=== PATIENT | male | born 1935 | race Caucasian/White ===

== ENCOUNTER 2021-09-26 09:56 | Inpatient (IN) | payer OTHER, SELFPAY ==
[2021-09-26] VITALS (9 sets, daily range): BP systolic 144–162; BP diastolic 75–93; PULSE 84–91; RESP 17–20; TEMP 36.5–36.7; O2SAT 83–98; BMI 19.5; BMI 20.1
--- NOTE | ~2021-09-26 | CT_ITS ---
EXAMINATION: CT ABDOMEN AND PELVIS WITH CONTRAST CLINICAL INFORMATION: Abdominal pain. History of diverticulitis. COMPARISON: None TECHNIQUE: Multidetector volumetric images were obtained from the superior aspect of the liver through the pubic symphysis following administration 85 mL of Omnipaque 350 intravenous contrast. Sagittal and coronal reformatted images were obtained on the technologist's workstation. Oral contrast: Yes This CT examination was performed using dose optimization techniques as appropriate, variously including the following: *Automated exposure control *Adjustment of mA and/or kV according to patient size (this includes techniques or standardized protocols for targeted exams where dose is matched to indication/reason for exam; i.e. extremities or head) *Use of iterative reconstruction technique DLP: 347 mGy-cm FINDINGS: LUNG BASES: There are small bilateral pleural effusions, left greater than right. These may be chronic as they demonstrate split pleural sign or pleural thickening and pleural calcification. There is adjacent atelectasis in both lower lobes, again left greater than right. LIVER, GALLBLADDER, AND BILIARY TREE: The liver is slightly enlarged. There are multiple cysts seen in the left lobe of the liver largest measuring 1 x 1.5 cm axial image 9 series 3. There is question of area of increased enhancement versus hypervascular lesion in the peripheral right lobe of the liver measuring 6 mm axial image 21 series 3. The gallbladder is enlarged. There are gallstones. PANCREAS: Unremarkable. SPLEEN: Unremarkable. ADRENAL GLANDS: Unremarkable. KIDNEYS AND URETERS: Both kidneys appear atrophic. There are multiple bilateral renal cysts. There is a 2 cm lesion exophytic to the lateral lower pole the right kidney. Hounsfield units measure 60 not compatible with a simple cyst. It is uncertain whether this represents a complex cyst versus solid lesion. There are bilateral renal calcifications questionable for stones versus vascular calcifications. There is a lucent centered calcification in the right renal hilum questionable for right renal artery aneurysm. This measures 8 x 10 mm. BLADDER: Not empty and not well evaluated. GASTROINTESTINAL TRACT: There is severe diverticulosis of the colon. The colon in the pelvis is difficult to follow. The distal sigmoid colon is abnormal appearing. There is abnormal wall irregularity slightly high attenuation or enhancing thickening of the sigmoid colon questionable for mass versus diverticulitis. There is mild secondary obstruction. There is a long segment of diffuse wall thickening of the more proximal left colon and sigmoid colon. There are enlarged pericolic lymph nodes adjacent to the sigmoid colon. There are postsurgical changes from right colectomy. Small bowel is unremarkable. The stomach is contracted. ABDOMINAL WALL: No significant hernia is appreciated. LYMPH NODES: Enlarged pericolic lymph nodes in the pelvis adjacent to the sigmoid colon. VASCULAR: There is evidence of severe atherosclerotic disease. There is an aortobiiliac stent graft. There is a saccular aneurysm of the anterior left mid abdominal aorta. This measures 3.5 x 5.5 cm in AP and transverse dimension axial image 36 series 3. No comparison exams are available. There is ectasia of the iliac arteries. PELVIC VISCERA: Surgically absent OSSEOUS STRUCTURES: Severe degenerative changes of the spine. CT/CT abdomen pelvis w con IMPRESSION: Abnormal sigmoid colon. The sigmoid colon is tortuous and the course is difficult to follow. There is severe diverticular disease of the colon. There is marked irregular wall thickening of the sigmoid colon questionable for mass versus diverticulitis. There is long segment wall thickening of the more proximal sigmoid and distal left colon and partial secondary obstruction. There are enlarged pericolic lymph nodes. Enlarged liver. Liver cysts. Question area of increased enhancement versus a hypervascular lesion measuring 6 mm in the peripheral right lobe of the liver. Atrophic-appearing kidneys. Bilateral renal cysts. Question complex cyst versus solid renal mass in the lower pole the right kidney. 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 Aortobiiliac stent graft. Saccular left-sided abdominal aortic aneurysm of the mid abdominal aorta measuring 3.5 x 5.5 cm. No comparison exams are available for comparison. Pleural and parenchymal changes at the lung bases, left greater than right. Fleischner guidelines were followed.
--- NOTE | ~2021-09-26 | XR_ITS ---
EXAMINATION: XR CHEST CLINICAL INFORMATION: Significant impairment COMPARISON: None TECHNIQUE: Frontal view of the chest was obtained. FINDINGS: There is diffusely increased lung markings with left lower lobe consolidation/pleural effusion. Calcified plaques along the lung bases. Vascular stent present in the left subclavian area cardiomediastinal silhouette is not enlarged XR/XR chest 1V IMPRESSION: Patchy airspace disease bilaterally and left lower lobe airspace disease/pleural effusion
--- NOTE | 2021-09-26 10:21 | ECG_ITS ---
Test Reason : WEAKNESS Blood Pressure : / mmHG Vent. Rate : 084 BPM Atrial Rate : 084 BPM P-R Int : 176 ms QRS Dur : 094 ms QT Int : 396 ms P-R-T Axes : 054 -18 -35 degrees QTc Int : 467 ms Normal sinus rhythm Nonspecific ST and T wave abnormality Abnormal ECG No previous ECGs available Referred By: Frida Jeffrey Electronically Signed By:BETHANIE ANN MD
--- NOTE | 2021-09-26 10:25 | ED.ABDPAIN ---
HPI - Abdominal Pain General Chief Complaint: Abdominal Pain Stated Complaint: Vomiting Time Seen by Provider: 09/26/21 10:21 Source: patient and old records reviewed Mode of arrival: EMS Limitations: no limitations History of Present Illness HPI narrative: missed HD on Friday and didn't go today, has had nausea, unable to have BM - small one on Friday after laxative does not report passing flatus MD elicited complaint: abdominal pain Pertinent past history: diverticulitis (dx at [facility] on 09/15 with cipro and flagyl states he completed the course) Onset (ago): day(s) (since Friday ) Pain Consistency: constant Location: suprapubic (does not make urine) Severity: moderate Quality: cramping Radiation: none Migration to: no migration Exacerbating factors: eating and movement Relieving factors: nothing Context: recent antibiotic use and history of similar episodes Associated symptoms: nausea, vomiting, chills and anorexia Related Data Allergies Allergy/AdvReac Type Severity Reaction Status Date / Time oxycodone Allergy Hallucinati Verified 09/26/21 10:14 ons aspirin AdvReac Stomach Verified 09/26/21 10:14 Upset sevelamer [From Renvela] AdvReac Stomach Verified 09/26/21 10:14 Upset [id number] Reductase AdvReac Stomach Verified 09/26/21 10:14 Inhibitor Upset Review of Systems Review of Systems Constitutional : No Weight loss, No Fever, No Chills ENT/Mouth : No sore throat, No Rhinorrhea Eyes: No Swelling, No Redness Cardiovascular : No Chest Pain, No SOB, NoEdema Respiratory : No Cough, No Sputum, No Wheezing Gastrointestinal : Positive Nausea, Positive Vomiting, no Diarrhea, positive abdominal Pain, No Hematochezia, No Melena, pos constipation, no flatus Genitourinary : No Dysuria, No Urinary Frequency, No Hematuria, No Urgency Musculoskeletal : No joint pain, No Myalgias, No Joint Swelling Skin : No Skin Lesions, No rash Neuro : pos Weakness, No Numbness, No Dizziness, No Headache Psych : No Anxiety/Panic, No Depression Heme/Lymph: No Bruising, No Lymphadenopathy Endocrine : No Polyuria, No Polydipsia All other systems reviewed and are negative. [facility] Past Medical History Attestation statement: The following information was validated with the patient. Medical History (Updated 09/26/21 @ 15:50 by Frida Jeffrey DO) CRF (chronic renal failure) Diverticulosis GERD (gastroesophageal reflux disease) Gout HTN (hypertension) Surgical History (Updated 09/26/21 @ 10:30 by Frida Jeffrey DO) H/O colectomy H/O prostatectomy S/P AAA repair Social History Social History (Updated 09/26/21 @ 10:31 by Frida Jeffrey DO) Alcohol intake: never Patient Tobacco Use Status: Former Tobacco user Use of substances other than those prescribed or required for medical reasons: No Advance Directives: Yes Advance Directives Information Provided: Yes Advance Directives on File: No Physical Exam ED Vital Signs: Vital Signs - 24 hr 09/26/21 10:04 09/26/21 11:19 09/26/21 13:10 Temperature 98 F 98.1 F 97.9 F Pulse Rate 88 88 85 Respiratory Rate 19 18 17 Blood Pressure 160/86 H 144/75 H 154/84 H Pulse Oximetry 97 91 L 88 L 09/26/21 13:11 09/26/21 14:37 09/26/21 15:03 Temperature 97.7 F Pulse Rate 90 90 Respiratory Rate 18 18 Blood Pressure 158/86 H 162/93 H Pulse Oximetry 98 97 98 BMI result Body Mass Index 19.5 Appearance: Alert. Oriented X3. No acute distress. Eyes: Pupils equal, round and reactive to light. ENT: Pharynx very moderate dry MM Neck: Normal inspection. Neck supple. CVS: Normal heart rate and rhythm. Pulses normal. Respiratory: No respiratory distress. Breath sounds normal. Abdomen: distended but soft, moderate ttp in lower abdomen Skin: Skin warm and dry. Normal skin color. Normal skin turgor. Extremities: No lower extremity edema. LUE AVF + thrill Neuro: Oriented X 3. No motor deficit. No sensory deficit. Course Course Course Narrative: 1227 pm xray abnormal possible disease though likely related to pulm edema will start on empiric zosyn / flagyl suspect diverticulitis as well - infection suspected delay in CT scan read initial review by me ?abscess did send message to Dr. Alston he will review images if abscess admit to hospitalist and IR drainage, will consult will notify his supervisor instrument repair message sent to Dr. Alston given CT scan read 349pm - aware will consult patient Dr. Smith aware of patient admission MDM - Abdominal Pain MDM Narrative Medical decision making narrative: 86 yo male with hx of CKD on HD MWF, AAA repair, anemia, GERD just admitted to [facility] until 09/15 for diverticulitis sent home on cipro / flagyl completed course but noted he ate food on Friday and developed n/v and lower abdominal pain notes constipation and lack of flatus at this time will need labs, EKG, IV morphine for pain, CT scan for diverticulitis/abscess. Dispo per results and findings. Lab Data Result diagrams: 09/26/21 10:48 09/26/21 10:48 Labs: Lab Results 09/26/21 09/26/21 09/26/21 Range/Units 10:48 10:48 10:48 WBC 7.9 (4.8-10.8) X10*3/uL RBC 3.11 L (4.60-5.80) X10*6/uL Hgb 10.1 L (14.0-18.0) g/dl Hct 31.4 L (42.0-52.0) % MCV 101.0 H (80.0-98.0) fL MCH 32.5 (27.0-33.0) pg MCHC 32.2 (31.0-36.0) g/dl RDW 19.7 H (11.0-16.0) % Plt Count 232 (160-400) X10*3/uL MPV 8.7 L (9.4-12.4) fL Immature Gran % (Auto) 0.5 H (0.0-0.4) % Neut % (Auto) 77.4 H (45-73) % Lymph % (Auto) 9.6 L (20-40) % [place] % (Auto) 6.8 (2-11) % Eos % (Auto) 4.7 H (0-4) % Baso % (Auto) 1.0 (0-2) % Lymph # (Auto) 0.8 L (1.2-4.9) X10*3/uL [place] # (Auto) 0.5 (0.1-1.2) X10*3/uL Eos # (Auto) 0.4 (0.0-0.4) X10*3/uL Baso # (Auto) 0.1 (0.0-0.2) X10*3/uL Abs Immat Gran (auto) 0.04 H (0.00-0.03) X10*3/uL Absolute Neuts (auto) 6.1 (2.0-8.3) x10*3/uL Absolute Nucleated RBC 0.000 (0.0-0.012) X10*3/uL Nucleated RBC % (auto) 0.0 (0.0-0.2) /100WBC PT (9.9-13.0) SEC INR (0.9-1.1) Sodium 143 (135-145) mmol/L Potassium 4.8 (3.3-5.1) mmol/L Chloride 103 (96-108) mmol/L Carbon Dioxide 23 (22-29) mmol/L Anion Gap 22 H (12-20) BUN 68 H (9-16) mg/dL Creatinine 9.16 H* (0.5-1.4) mg/dL Estim Creat Clear Calc 5.2 Estimated GFR 6 Random Glucose 85 (60-115) mg/dL Lactic Acid (0.5-2.0) mmol/L Calcium 8.7 (8.4-10.2) mg/dL Magnesium 2.3 (1.6-2.6) mg/dL Total Bilirubin 0.8 (0.0-1.0) mg/dL Direct Bilirubin 0.4 (0.0-0.5) mg/dL AST 13 (5-37) U/L ALT 8 (0-40) U/L Alkaline Phosphatase 91 (39-117) U/L Total Protein 6.5 (6.5-8.0) g/dL Albumin 3.5 (3.5-5.0) g/dL Lipase 41 (8-78) U/L COVID-19 ([facility]) Negative (Negative) COVID-19 Clin Com See Note 09/26/21 09/26/21 Range/Units 10:48 10:48 WBC (4.8-10.8) X10*3/uL RBC (4.60-5.80) X10*6/uL Hgb (14.0-18.0) g/dl Hct (42.0-52.0) % MCV (80.0-98.0) fL MCH (27.0-33.0) pg MCHC (31.0-36.0) g/dl RDW (11.0-16.0) % Plt Count (160-400) X10*3/uL MPV (9.4-12.4) fL Immature Gran % (Auto) (0.0-0.4) % Neut % (Auto) (45-73) % Lymph % (Auto) (20-40) % [place] % (Auto) (2-11) % Eos % (Auto) (0-4) % Baso % (Auto) (0-2) % Lymph # (Auto) (1.2-4.9) X10*3/uL [place] # (Auto) (0.1-1.2) X10*3/uL Eos # (Auto) (0.0-0.4) X10*3/uL Baso # (Auto) (0.0-0.2) X10*3/uL Abs Immat Gran (auto) (0.00-0.03) X10*3/uL Absolute Neuts (auto) (2.0-8.3) x10*3/uL Absolute Nucleated RBC (0.0-0.012) X10*3/uL Nucleated RBC % (auto) (0.0-0.2) /100WBC PT 13.4 H (9.9-13.0) SEC INR 1.2 H (0.9-1.1) Sodium (135-145) mmol/L Potassium (3.3-5.1) mmol/L Chloride (96-108) mmol/L Carbon Dioxide (22-29) mmol/L Anion Gap (12-20) BUN (9-16) mg/dL Creatinine (0.5-1.4) mg/dL Estim Creat Clear Calc Estimated GFR Random Glucose (60-115) mg/dL Lactic Acid 0.8 (0.5-2.0) mmol/L Calcium (8.4-10.2) mg/dL Magnesium (1.6-2.6) mg/dL Total Bilirubin (0.0-1.0) mg/dL Direct Bilirubin (0.0-0.5) mg/dL AST (5-37) U/L ALT (0-40) U/L Alkaline Phosphatase (39-117) U/L Total Protein (6.5-8.0) g/dL Albumin (3.5-5.0) g/dL Lipase (8-78) U/L COVID-19 (S[facility]OR) (Negative) COVID-19 Clin Com ECG Data Attestation: I personally reviewed and interpreted this ECG as follows: ECG interpretation date: 09/26/21 ECG interpretation time: 10:54 Interpretation: Rate: 84 Rhythm: NSR [place]: left Normal P waves. Normal CRUZ. Normal QRS complex. ST T wave : no ATUL, inverted t waves inf leads qTC: normal prior studies: no acute ischemia The study has been interpreted contemporaneously by me. . Discharge Plan Discharge Clinical Impression: Diverticulitis Abdominal pain Qualifiers: Abdominal location: lower abdomen, unspecified Qualified Code(s): R10.30 - Lower abdominal pain, unspecified CKD (chronic kidney disease) Qualifiers: Chronic kidney disease stage: on chronic dialysis Qualified Code(s): N18.6 - End stage renal disease Patient Disposition: Admitted As Inpatient
[2021-09-26] MEDS: Morphine Sulfate 4 MG/ML CARTRIDGE IVPUSH (10:51)
[2021-09-26] MEDS: ondansetron HCL 4 MG/2 ML VIAL IVPUSH (10:51)
[2021-09-26 10:59] LABS: MANUAL DIFF FLAG NO
[2021-09-26 11:03] LABS: Basophils Absolute Auto 0.1 X10*3/uL (0.0-0.2); Eosinophils Absolute Auto 0.4 X10*3/uL (0.0-0.4); Eosinophils Percent Auto 4.7 % (0-4); Hematocrit 31.4 % (42.0-52.0); Hemoglobin 10.1 g/dl (14.0-18.0); Imm Gran Abs Auto 0.04 X10*3/uL (0.00-0.03); Imm Gran Pct Auto 0.5 % (0.0-0.4); Lymphocytes Absolute Auto 0.8 X10*3/uL (1.2-4.9); Lymphocytes Percent Auto 9.6 % (20-40); Mean Corpuscular HGB Conc 32.2 g/dl (31.0-36.0); Mean Corpuscular Hemoglobin 32.5 pg (27.0-33.0); Mean Platelet Volume 8.7 fL (9.4-12.4); Monocytes Absolute Auto 0.5 X10*3/uL (0.1-1.2); Monocytes Percent Auto 6.8 % (2-11); Neutrophils Absolute Auto 6.1 x10*3/uL (2.0-8.3); Neutrophils Percent Auto 77.4 % (45-73); Platelet Count 232 X10*3/uL (160-400); Red Blood Count 3.11 X10*6/uL (4.60-5.80); Red Cell Distribution Width 19.7 % (11.0-16.0); White Blood Count 7.9 X10*3/uL (4.8-10.8)
[2021-09-26 11:14] LABS: COVID-19 Test Negative (Negative); IDNOW Serial# 9DD0AD1C
[2021-09-26 11:15] LABS: Lactic Acid 0.8 mmol/L (0.5-2.0)
--- NOTE | 2021-09-26 11:21 | PC.NURSE ---
patient a&ox3, pt o2 sat was noted to be at 91%, had patient deep breathe which brought it up to 94%, pt states he has abd pain 4/10 which he states has gotten better from previously before being medicated, call dunn within reach, will continue to monitor.
[2021-09-26 11:24] LABS: INTERNATIONAL NORM RATIO 1.2 (0.9-1.1); Prothrombin Time 13.4 SEC (9.9-13.0)
[2021-09-26 11:27] LABS: Alanine Aminotransferase 8 U/L (0-40); Albumin Level 3.5 g/dL (3.5-5.0); Alkaline Phosphatase 91 U/L (39-117); Anion Gap 22 (12-20); Aspartate Amino Transferase 13 U/L (5-37); Bilirubin Direct 0.4 mg/dL (0.0-0.5); Bilirubin Total 0.8 mg/dL (0.0-1.0); Blood Urea Nitrogen 68 mg/dL (9-16); Calcium 8.7 mg/dL (8.4-10.2); Carbon Dioxide 23 mmol/L (22-29); Chloride 103 mmol/L (96-108); Creatinine Clr Calc Pharmacy 5.2; Estimated Glomerular Filt Rate 6; Glucose Random 85 mg/dL (60-115); Lipase 41 U/L (8-78); Magnesium 2.3 mg/dL (1.6-2.6); Potassium 4.8 mmol/L (3.3-5.1); Sodium 143 mmol/L (135-145); Total Protein 6.5 g/dL (6.5-8.0)
[2021-09-26] MEDS: Piperacillin Sodium/Tazobactam 3.375 GM in 0.9 % Sodium Chloride 50 ML IV (13:03)
--- NOTE | 2021-09-26 13:04 | PC.NURSE ---
iv antibiotics running per order
[2021-09-26] MEDS: iohexoL 350 MG/ML 100 ML INFUS..BTL IV (14:17)
[2021-09-26] MEDS: metroNIDAZOLE/NS 500 MG/100 ML PIGGYBACK 100 MG IV (15:04)
--- NOTE | 2021-09-26 15:06 | PC.NURSE ---
patient a&ox3, air sampling and monitoring nsr 90s, vss, pt medicated per order, pt lt av fistula + bruit/thrill, call dunn within reach, will continue to monitor.
--- NOTE | 2021-09-26 16:00 | PC.NURSE ---
provider at bedside to drain cyst.
--- NOTE | 2021-09-26 17:08 | P.HPHOSP_ITS ---
History of Present Illness Date of Service: 09/26/21 Chief Complaint: nausea, abd pain 86yo legally blind M with ESRD on HD MWF, anemia of CKD, HFpEF, GERD, AAA s/p EVAR, HTN, gout, prostate CA s/p radical prostatectomy, hx GI bleed, hx colonic polyp s/p polypectomy who was just admitted to [facility] 09/10- 09/15/21 for acute diverticulitis with question of possible melena. He had missed 1 session of dialysis due to nausea and vomiting. He was discharged on ciprolofloxacin and metronidazole and completed his last doses on 09/16/21. He developed worsening abdominal pain, nausea, and vomiting without hematemesis the next day. He again missed HD 09/24 and today. He has not had a BM on a week. He has been eating very little. No fever. CT scan showed a tortuous sigmoid colon with severe diverticular disease and irregular wall thickening questionable for mass versus diverticulitis, with partial secondary obstruction and enlarged pericolic lymph nodes. He was given Zosyn, Zofran, and morphine. Review of Systems Review of Systems: Yes all other systems are reviewed and are negative [facility] Medical History (Updated 09/26/21 @ 17:18 by Debra Simpson MD) (HFpEF) heart failure with preserved ejection fraction AAA (abdominal aortic aneurysm) Anemia in ESRD (end-stage renal disease) Colonic polyp CRF (chronic renal failure) Depression Diverticulosis GERD (gastroesophageal reflux disease) Gout History of prostate cancer HTN (hypertension) Pertinent family history: daughter with breast CA Surgical History (Updated 09/26/21 @ 17:18 by Debra Simpson MD) H/O colectomy H/O prostatectomy History of colonoscopy with polypectomy S/P AAA repair Social History Alcohol intake: never Patient Tobacco Use Status: Former Tobacco user Use of substances other than those prescribed or required for medical reasons: No Advance Directives: Yes Advance Directives Information Provided: Yes Advance Directives on File: No Narrative: lives with , no EtOH/tob/drugs Meds Allergies Allergy/AdvReac Type Severity Reaction Status Date / Time oxycodone Allergy Hallucinati Verified 09/26/21 10:14 ons aspirin AdvReac Stomach Verified 09/26/21 10:14 Upset sevelamer [From Renvela] AdvReac Stomach Verified 09/26/21 10:14 Upset Clwosfk-ULL-[id number] Reductase AdvReac Stomach Verified 09/26/21 10:14 Inhibitor Upset Active Medications: Current Medications Piperacillin Sod/Tazobactam (Sod 2.25 gm/ Sodium Chloride) 50 mls @ 100 mls/hr IV Q8H [facility] Pharmacy Consult (Consult Rx Perform Med Rec) 1 each MISCELLANE ONCE PRN PRN Reason: Consult order Physical Exam Vital Signs and Narrative: Vital Signs: Last Vital Signs Temp 97.7 F 09/26/21 15:03 Pulse 90 09/26/21 15:03 Resp 18 09/26/21 15:03 BP 162/93 H 09/26/21 15:03 Pulse Ox 98 09/26/21 15:03 BMI result Body Mass Index 19.5 Gen: in no acute distress HEENT: sclera anicteric, moist mucus membranes Neck: supple Lungs: clear to auscultation bilaterally Heart: regular rate and rhythm, no murmurs Abd: soft, minimally tender without rebound, no masses, no HSM Ext: no edema; LUE fistula Skin: warm/well-perfused Neuro: alert and oriented x3, no focal findings Psych: appropriate affect Results Labs CBC and Chem 7: 09/26/21 10:48 09/26/21 10:48 Labs: Laboratory Results - last 24 hr 09/26/21 09/26/21 09/26/21 10:48 10:48 10:48 MCV 101.0 H MCH 32.5 MCHC 32.2 RDW 19.7 H Plt Count 232 MPV 8.7 L Immature Gran % (Auto) 0.5 H Neut % (Auto) 77.4 H Lymph % (Auto) 9.6 L [place] % (Auto) 6.8 Eos % (Auto) 4.7 H Baso % (Auto) 1.0 Lymph # (Auto) 0.8 L [place] # (Auto) 0.5 Eos # (Auto) 0.4 Baso # (Auto) 0.1 Abs Immat Gran (auto) 0.04 H Absolute Neuts (auto) 6.1 Absolute Nucleated RBC 0.000 Nucleated RBC % (auto) 0.0 PT INR Anion Gap 22 H Estim Creat Clear Calc 5.2 Estimated GFR 6 Random Glucose 85 Lactic Acid Calcium 8.7 Magnesium 2.3 Total Bilirubin 0.8 Direct Bilirubin 0.4 AST 13 ALT 8 Alkaline Phosphatase 91 C-Reactive Protein 7.70 H Total Protein 6.5 Albumin 3.5 Lipase 41 COVID-19 ([facility]) Negative COVID-19 Clin Com See Note 09/26/21 09/26/21 10:48 10:48 MCV MCH MCHC RDW Plt Count MPV Immature Gran % (Auto) Neut % (Auto) Lymph % (Auto) [place] % (Auto) Eos % (Auto) Baso % (Auto) Lymph # (Auto) [place] # (Auto) Eos # (Auto) Baso # (Auto) Abs Immat Gran (auto) Absolute Neuts (auto) Absolute Nucleated RBC Nucleated RBC % (auto) PT 13.4 H INR 1.2 H Anion Gap Estim Creat Clear Calc Estimated GFR Random Glucose Lactic Acid 0.8 Calcium Magnesium Total Bilirubin Direct Bilirubin AST ALT Alkaline Phosphatase C-Reactive Protein Total Protein Albumin Lipase COVID-19 ([facility]) COVID-19 Clin Com Imaging Radiologist's Impressions: Impressions Chest X-Ray 09/26/21 11:53 IMPRESSION: Patchy airspace disease bilaterally and left lower lobe airspace disease/pleural effusion Abdomen/Pelvis CT 09/26/21 14:20 IMPRESSION: Abnormal sigmoid colon. The sigmoid colon is tortuous and the course is difficult to follow. There is severe diverticular disease of the colon. There is marked irregular wall thickening of the sigmoid colon questionable for mass versus diverticulitis. There is long segment wall thickening of the more proximal sigmoid and distal left colon and partial secondary obstruction. There are enlarged pericolic lymph nodes. Enlarged liver. Liver cysts. Question area of increased enhancement versus a hypervascular lesion measuring 6 mm in the peripheral right lobe of the liver. Atrophic-appearing kidneys. Bilateral renal cysts. Question complex cyst versus solid renal mass in the lower pole the right kidney. 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 Aortobiiliac stent graft. Saccular left-sided abdominal aortic aneurysm of the mid abdominal aorta measuring 3.5 x 5.5 cm. No comparison exams are available for comparison. Pleural and parenchymal changes at the lung bases, left greater than right. Fleischner guidelines were followed. Assessment and Plan (1) Diverticulitis: Status: Acute Plan 86yo legally blind M with ESRD on HD MWF, anemia of CKD, HFpEF, GERD, AAA s/p EVAR, HTN, gout, prostate CA s/p radical prostatectomy, hx GI bleed, hx colonic polyp s/p polypectomy; recently admitted to [facility] for acute diverticulitis treated with antibiotics, presenting with recurrent diverticulitis causing missed HD # sigmoid diverticulitis, recurrent - admit to M/S, IV pip/moses renally dosed, GI + Surg consult re: sigmoidoscopy # ESRD on HD - missed HD; consult Nephro for inpt HD - continue cinacalcet # possible liver cyst - GI consult, outpt MRI # R kidney cyst vs. renal mass - outpt MRI # HTN # HFpEF - continue amlodipine + labetalol # gout - continue allopurinol # GERD - continue PPI # VTE ppx - UFH # code - FULL Quality Stroke Does the patient have a stroke diagnosis?: No VTE Prior VTE?: No VTE Risk Level:: Medical - moderate - high VTE Device Contraindication: N/A - Device Ordered VTE Drug Contraindication: N/A - Med Ordered
--- NOTE | 2021-09-26 17:33 | PHA.MEDREC ---
Pharmacy Consult ? Medication Reconciliation Pharmacy has completed the medication reconciliation. Med rec obtained from the ID
[2021-09-26] MEDS: Heparin Sodium,Porcine 5,000 UNIT/ML VIAL 5000 UNIT SUBCUT (18:02)
[2021-09-26] MEDS: Piperacillin Sodium/Tazobactam 2.25 GM in 0.9 % Sodium Chloride 50 ML IV (18:02)
--- NOTE | 2021-09-26 18:25 | P.CONNP_ITS ---
History of Present Illness Reason for Consult Consult date: 09/26/21 Reason for consult: ESRD Chief Complaint Chief complaint: Recurrent diverticulitis History of Present Illness Narrative: Known ESRD patient who usually gets HD on MWF. Recently had diverticulitis (dx at [facility] on 09/15 with cipro and flagyl states he completed the course). Has been having nausea, poor appetite and abdominal pain which is worse with food. Has not had HD since last friday. Denies fever, chest pain, SOB or confusion. Being admitted for further care. Nephrology has been consulted to assist in his clinical management during his current hospital stay. Review of Systems Review of Systems Yes all other systems are reviewed and are negative PMFSH Past Medical History Medical History (HFpEF) heart failure with preserved ejection fraction AAA (abdominal aortic aneurysm) Anemia in ESRD (end-stage renal disease) Colonic polyp CRF (chronic renal failure) Depression Diverticulosis GERD (gastroesophageal reflux disease) Gout History of prostate cancer HTN (hypertension) Family History Pertinent family history: No family H/O ESRD or renal transplantation Family history: reviewed and not pertinent Surgical History Surgical History H/O colectomy H/O prostatectomy History of colonoscopy with polypectomy S/P AAA repair Social History Social History Alcohol intake: never Patient Tobacco Use Status: Former Tobacco user Use of substances other than those prescribed or required for medical reasons: No Advance Directives: Yes Advance Directives Information Provided: Yes Advance Directives on File: No Meds Allergies Allergy/AdvReac Type Severity Reaction Status Date / Time oxycodone Allergy Hallucinati Verified 09/26/21 10:14 ons aspirin AdvReac Stomach Verified 09/26/21 10:14 Upset sevelamer [From Renvela] AdvReac Stomach Verified 09/26/21 10:14 Upset [place]-LVT-AyU Reductase AdvReac Stomach Verified 09/26/21 10:14 Inhibitor Upset Active Medications: Current Medications Acetaminophen (Acetaminophen 325 Mg Tablet) 650 mg PO Q6H PRN PRN Reason: Pain, Mild (Pain Scale 1-3) Allopurinol (Allopurinol 100 Mg Tablet) 100 mg PO BID ALEJANDRO Amlodipine Besylate (Amlodipine Besylate 5 Mg Tablet) 5 mg PO DAILY [facility]; Protocol Cinacalcet (Cinacalcet Hcl 30 Mg Tablet) 30 mg PO DAILY [facility] Heparin Sodium (Porcine) (Heparin Sodium,Porcine 5,000 Unit/Ml Vial) 5,000 unit SUBCUT Q12H [facility] Last Admin: 09/26/21 18:02 Dose: 5,000 unit Documented by: Hydromorphone HCl (Hydromorphone Hcl 0.5 Mg/0.5 Ml Syringe) 0.5 mg IVPUSH Q4H PRN; Protocol PRN Reason: Pain, Severe (Pain Scale 7-10) Piperacillin Sod/Tazobactam (Sod 2.25 gm/ Sodium Chloride) 50 mls @ 100 mls/hr IV Q8H [facility] Last Admin: 09/26/21 18:02 Dose: 100 mls/hr Documented by: Labetalol HCl (Labetalol Hcl 200 Mg Tablet) 200 mg PO BID [facility]; Protocol Multivitamins/Vitamin C (Multivitamin Tablet) 1 tab PO DAILY [facility] Omeprazole (Omeprazole 20 Mg Capsule.Dr) 20 mg PO DAILY@0630 [facility] Pharmacy Consult (Consult Rx Perform Med Rec) 1 each MISCELLANE ONCE PRN PRN Reason: Consult order Sertraline HCl (Sertraline Hcl 100 Mg Tablet) 100 mg PO DAILY [facility] Sodium Chloride (0.9 % Sodium Chloride Flush 3 Ml Syringe) 3 ml IVFLUSH QSHIFT [facility] Home Medications Medication Instructions Recorded Confirmed Last Taken Type allopurinol 100 mg tablet 100 mg PO DAILY 09/26/21 09/26/21 Unknown History amlodipine 10 mg tablet (Norvasc) 10 mg PO DAILY 09/26/21 09/26/21 Unknown History cinacalcet 30 mg tablet 30 mg PO BID 09/26/21 09/26/21 Unknown History labetalol 100 mg tablet 100 mg PO BID 09/26/21 09/26/21 Unknown History pantoprazole 20 mg tablet,delayed 20 mg PO DAILY 09/26/21 09/26/21 Unknown History release (Protonix) sertraline 100 mg tablet (Zoloft) 100 mg PO DAILY 09/26/21 09/26/21 Unknown History vitamin B complex-vitamin C-folic 1 tab PO DAILY 09/26/21 09/26/21 Unknown History acid 1 mg tablet white petrolatum-mineral oil 83 1 appl OPHTHALMIC-RIGHT BID 09/26/21 09/26/21 Unknown History %-15 % eye ointment Physical Exam Vital Signs: Last Vital Signs Temp 97.9 F 09/26/21 18:20 Pulse 91 09/26/21 18:20 Resp 20 09/26/21 18:20 BP 154/87 H 09/26/21 18:20 Pulse Ox 95 09/26/21 18:20 BMI result Body Mass Index 19.5 Const General: comfortable Orientation/consciousness: patient oriented x3 HENMT Head: Yes normal to inspection Eyes Eyelids: Yes eyelids normal EOM: EOMs intact bilaterally Neck Neck: Yes supple Resp Auscultation: diminished lung sounds Cardio Jugular venous distension: no JVD GI Palpation (GI): Soft to palpation and Tenderness to palpation present (GI) Neuro General: patient oriented x3 and moves all extremities Results Lab Results Result Diagrams: 09/26/21 10:48 09/26/21 10:48 Lab results: Chemistry 09/26/21 10:48 Sodium 143 Potassium 4.8 Carbon Dioxide 23 BUN 68 H Creatinine 9.16 H* Calcium 8.7 Hematology 09/26/21 10:48 WBC 7.9 Hgb 10.1 L Plt Count 232 Assessment and Plan (1) ESRD (end stage renal disease) on dialysis: Status: Acute Plan Usually gets HD on MWF Has not had HD since last Wed No indication for HD tonight HD AM ordered; Then HD on MWF Volume optimization on HD No indication for EPO now Renal Diet- 2 Gram Na/K/Phos restricted Fluid restriction 1.5 L/ 24 hours HD RN aware of HD tomorrow( ordered) Shall closely follow up Procedures Date of Service Date of Service: 09/26/21
--- NOTE | 2021-09-26 18:50 | PM.CNGS ---
History of Present Illness Consult details Consult date: 09/26/21 Narrative: 86-year-old male admitted for diverticulitis. He has multiple medical problems including end-stage renal disease, on hemodialysis, hypertension, gout, who states that he had lower abdominal pain the past 2 days. He was actually been admitted to [facility] recently and was discharged on September 15, 2021 for uncomplicated diverticulitis. He was discharged on oral antibiotics. He says he has been feeling fatigued and weak for the past week now and has had poor oral intake. He also says he is constipated and says he he does not recall having a good bowel movement in a week. He denies nausea or vomiting. He is passing flatus. He also says that he had attempted colonoscopy in [facility] about 2-3 months ago. This was incomplete as he was told that he could not go through his colon with the scope. Review of Systems Constitutional: Constitutional: Reports fatigue, Reports lethargy and Reports malaise Cardiovascular: Cardiovascular: Denies chest pain and Denies chest pain at rest Respiratory: Respiratory: Denies cough Gastrointestinal: Gastrointestinal: Denies hematochezia and Denies vomiting Genitourinary: Genitourinary: Denies hematuria Musculoskeletal: Musculoskeletal: Reports arthralgias Neurologic: Denies confusion and Denies Sensory deficit (Neuro) Psychiatric: Psychiatric: Denies confusion Endocrine: Endocrine: Reports fatigue PMFSH Past Medical History Medical History (HFpEF) heart failure with preserved ejection fraction AAA (abdominal aortic aneurysm) Anemia in ESRD (end-stage renal disease) Colonic polyp CRF (chronic renal failure) Depression Diverticulosis GERD (gastroesophageal reflux disease) Gout History of prostate cancer HTN (hypertension) Family History Family history: reviewed and not pertinent Surgical History Surgical History H/O colectomy H/O prostatectomy History of colonoscopy with polypectomy S/P AAA repair Social History Social History Household Members: Spouse Do you presently have visiting nurse or other home services: No Alcohol intake: never Patient Tobacco Use Status: Former Tobacco user Advance Directives Date on File: 09/26/21 service: Yes Current occupational status: retired Meds Allergies Allergy/AdvReac Type Severity Reaction Status Date / Time oxycodone Allergy Hallucinati Verified 09/26/21 10:14 ons aspirin AdvReac Stomach Verified 09/26/21 10:14 Upset sevelamer [From Renvela] AdvReac Stomach Verified 09/26/21 10:14 Upset [id number] Reductase AdvReac Stomach Verified 09/26/21 10:14 Inhibitor Upset Active Medications: Current Medications Acetaminophen (Acetaminophen 325 Mg Tablet) 650 mg PO Q6H PRN PRN Reason: Pain, Mild (Pain Scale 1-3) Allopurinol (Allopurinol 100 Mg Tablet) 100 mg PO BID [facility] Amlodipine Besylate (Amlodipine Besylate 5 Mg Tablet) 5 mg PO DAILY [facility]; Protocol Cinacalcet (Cinacalcet Hcl 30 Mg Tablet) 30 mg PO DAILY [facility] Heparin Sodium (Porcine) (Heparin Sodium,Porcine 5,000 Unit/Ml Vial) 5,000 unit SUBCUT Q12H [facility] Last Admin: 09/26/21 18:02 Dose: 5,000 unit Documented by: Hydromorphone HCl (Hydromorphone Hcl 0.5 Mg/0.5 Ml Syringe) 0.5 mg IVPUSH Q4H PRN; Protocol PRN Reason: Pain, Severe (Pain Scale 7-10) Piperacillin Sod/Tazobactam (Sod 2.25 gm/ Sodium Chloride) 50 mls @ 100 mls/hr IV Q8H [facility] Last Infusion: 09/26/21 18:37 Dose: Infused Documented by: Labetalol HCl (Labetalol Hcl 200 Mg Tablet) 200 mg PO BID [facility]; Protocol Multivitamins/Vitamin C (Multivitamin Tablet) 1 tab PO DAILY [facility] Omeprazole (Omeprazole 20 Mg Capsule.Dr) 20 mg PO DAILY@0630 [facility] Pharmacy Consult (Consult Rx Perform Med Rec) 1 each MISCELLANE ONCE PRN PRN Reason: Consult order Sertraline HCl (Sertraline Hcl 100 Mg Tablet) 100 mg PO DAILY [facility] Sodium Chloride (0.9 % Sodium Chloride Flush 3 Ml Syringe) 3 ml IVFLUSH QSHIFT [facility] Home Medications Medication Instructions Recorded Confirmed Last Taken Type allopurinol 100 mg tablet 100 mg PO DAILY 09/26/21 09/26/21 Unknown History amlodipine 10 mg tablet (Norvasc) 10 mg PO DAILY 09/26/21 09/26/21 Unknown History cinacalcet 30 mg tablet 30 mg PO BID 09/26/21 09/26/21 Unknown History labetalol 100 mg tablet 100 mg PO BID 09/26/21 09/26/21 Unknown History pantoprazole 20 mg tablet,delayed 20 mg PO DAILY 09/26/21 09/26/21 Unknown History release (Protonix) sertraline 100 mg tablet (Zoloft) 100 mg PO DAILY 09/26/21 09/26/21 Unknown History vitamin B complex-vitamin C-folic 1 tab PO DAILY 09/26/21 09/26/21 Unknown History acid 1 mg tablet white petrolatum-mineral oil 83 1 appl OPHTHALMIC-RIGHT BID 09/26/21 09/26/21 Unknown History %-15 % eye ointment Physical Exam Vital Signs: Vital Signs: Last Vital Signs Temp 97.9 F 09/26/21 18:20 Pulse 91 09/26/21 18:20 Resp 20 09/26/21 18:20 BP 154/87 H 09/26/21 18:20 Pulse Ox 95 09/26/21 18:20 BMI result Body Mass Index 19.5 Const: General: comfortable and no acute distress; No confusion Orientation/consciousness: No confusion Resp: Effort & Inspection: normal respiratory effort Auscultation: clear to auscultation bilaterally Cardio: Rate: regular rate GI: Other: Mildly tender in lower abdomen Inspection: No distended Palpation (GI): Soft to palpation, not firm, no guarding and not rigid Neuro: General: No confusion Sensory Exam: No Sensory deficit (Neuro) Extrem: Other: AV fistula on the left upper arm with thrill Right upper extremity: No no edema Results Labs Result diagrams: 09/28/21 05:38 09/28/21 05:38 Labs: Abnormal lab results 09/26/21 09/26/21 09/26/21 Range/Units 10:48 10:48 10:48 RBC 3.11 L (4.60-5.80) X10*6/uL Hgb 10.1 L (14.0-18.0) g/dl Hct 31.4 L (42.0-52.0) % MCV 101.0 H (80.0-98.0) fL RDW 19.7 H (11.0-16.0) % MPV 8.7 L (9.4-12.4) fL Immature Gran % (Auto) 0.5 H (0.0-0.4) % Neut % (Auto) 77.4 H (45-73) % Lymph % (Auto) 9.6 L (20-40) % Eos % (Auto) 4.7 H (0-4) % Lymph # (Auto) 0.8 L (1.2-4.9) X10*3/uL Abs Immat Gran (auto) 0.04 H (0.00-0.03) X10*3/uL PT 13.4 H (9.9-13.0) SEC INR 1.2 H (0.9-1.1) Anion Gap 22 H (12-20) BUN 68 H (9-16) mg/dL Creatinine 9.16 H* (0.5-1.4) mg/dL C-Reactive Protein 7.70 H (< or = 0.50) mg/dL Short CBC 09/26/21 Range/Units 10:48 WBC 7.9 (4.8-10.8) X10*3/uL Hgb 10.1 L (14.0-18.0) g/dl Hct 31.4 L (42.0-52.0) % Plt Count 232 (160-400) X10*3/uL BMP 09/26/21 10:48 Sodium 143 Potassium 4.8 Chloride 103 Carbon Dioxide 23 BUN 68 H Creatinine 9.16 H* Calcium 8.7 Liver Function 09/26/21 Range/Units 10:48 Total Bilirubin 0.8 (0.0-1.0) mg/dL Direct Bilirubin 0.4 (0.0-0.5) mg/dL AST 13 (5-37) U/L ALT 8 (0-40) U/L Alkaline Phosphatase 91 (39-117) U/L Albumin 3.5 (3.5-5.0) g/dL All other labs normal. Assessment and Plan (1) Diverticulitis: Status: Acute He has multiple medical problems as described above. His CAT scan shows thickening of the sigmoid which also appears very tortuous. He is constipated but is passing flatus and is abdomen and not distended. He has minimal tenderness to deep palpation in the lower abdomen and has a very benign exam. He looks comfortable at this time and says he has minimal pain. I would agree with IV antibiotics. He would need GI consult for flex sig versus colonoscopy. He does seem to have a very tortuous sigmoid as well. I will follow along while he is in the hospital. He is to undergo with dialysis as well tomorrow as he has missed 2 sessions. His potassium is acceptable at this time Procedures Date of Service Date of Service: 09/26/21
--- NOTE | 2021-09-26 19:02 | PC.NURSE ---
called to give report to floor, nurse in report and will call back
[2021-09-26] MEDS: Labetalol HCL 200 MG TABLET PO (20:40)
[2021-09-26] MEDS: allopurinoL 100 MG TABLET PO (20:42)
[2021-09-26] MEDS: 0.9 % Sodium Chloride Flush 3 ML SYRINGE IVFLUSH (20:42)
[2021-09-27] VITALS (7 sets, daily range): BP systolic 104–142; BP diastolic 51–75; PULSE 61–75; RESP 16–18; TEMP 36.1–37; O2SAT 92–96
[2021-09-27] MEDS: Piperacillin Sodium/Tazobactam 2.25 GM in 0.9 % Sodium Chloride 50 ML IV ×2 (03:32→18:34)
[2021-09-27 05:04] LABS: Hematocrit 27.9 % (42.0-52.0); Hemoglobin 8.8 g/dl (14.0-18.0); Mean Corpuscular HGB Conc 31.5 g/dl (31.0-36.0); Mean Corpuscular Hemoglobin 32.2 pg (27.0-33.0); Mean Corpuscular Volume 102.2 fL (80.0-98.0); Mean Platelet Volume 9.2 fL (9.4-12.4); Platelet Count 220 X10*3/uL (160-400); Red Blood Count 2.73 X10*6/uL (4.60-5.80); Red Cell Distribution Width 19.5 % (11.0-16.0); White Blood Count 8.6 X10*3/uL (4.8-10.8)
[2021-09-27 05:22] LABS: Anion Gap 22 (12-20); Blood Urea Nitrogen 76 mg/dL (9-16); Calcium 8.5 mg/dL (8.4-10.2); Carbon Dioxide 23 mmol/L (22-29); Chloride 103 mmol/L (96-108); Estimated Glomerular Filt Rate 5; Glucose Random 79 mg/dL (60-115); Potassium 5.6 mmol/L (3.3-5.1); Sodium 142 mmol/L (135-145)
[2021-09-27] MEDS: Heparin Sodium,Porcine 5,000 UNIT/ML VIAL 5000 UNIT SUBCUT ×2 (06:13→17:39)
[2021-09-27] MEDS: Omeprazole 20 MG CAPSULE.DR PO (06:13)
--- NOTE | 2021-09-27 08:18 | PM.PNGS ---
Subjective Subjective Date of Service: 09/27/21 Interval history: States he slept well Feels well today Mild lower abdominal pain Passing flatus Hungry and wants to eat Physical Exam Vital Signs: Vital Signs: Last Vital Signs Temp 97 F 09/27/21 07:05 Pulse 71 09/27/21 07:05 Resp 18 09/27/21 07:05 BP 127/75 09/27/21 07:05 Pulse Ox 93 09/27/21 07:05 BMI result Body Mass Index 20.1 Const: General: comfortable and no acute distress Resp: Effort & Inspection: normal respiratory effort Cardio: Rate: regular rate GI: Other: Minimal tenderness lower abdomen to deep palpation Inspection: No distended Palpation (GI): Soft to palpation, not firm, no guarding and not rigid Objective Data Active Medications Acetaminophen (Acetaminophen 325 Mg Tablet) 650 mg PO Q6H PRN PRN Reason: Pain, Mild (Pain Scale 1-3) Allopurinol (Allopurinol 100 Mg Tablet) 100 mg PO BID [facility] Last Admin: 09/26/21 20:42 Dose: 100 mg Documented by: TOMMY Amlodipine Besylate (Amlodipine Besylate 5 Mg Tablet) 5 mg PO DAILY [facility]; Protocol Cinacalcet (Cinacalcet Hcl 30 Mg Tablet) 30 mg PO DAILY [facility] Heparin Sodium (Porcine) (Heparin Sodium,Porcine 5,000 Unit/Ml Vial) 5,000 unit SUBCUT Q12H [facility] Last Admin: 09/27/21 06:13 Dose: 5,000 unit Documented by: BETTINA Hydromorphone HCl (Hydromorphone Hcl 0.5 Mg/0.5 Ml Syringe) 0.5 mg IVPUSH Q4H PRN; Protocol PRN Reason: Pain, Severe (Pain Scale 7-10) Piperacillin Sod/Tazobactam (Sod 2.25 gm/ Sodium Chloride) 50 mls @ 100 mls/hr IV Q8H [facility] Last Infusion: 09/27/21 04:03 Dose: 0 mls/hr Documented by: BETTINA Labetalol HCl (Labetalol Hcl 200 Mg Tablet) 200 mg PO BID [facility]; Protocol Last Admin: 09/26/21 20:40 Dose: 200 mg Documented by: TOMMY Comments: CY=174/[id number] Multivitamins/Vitamin C (Multivitamin Tablet) 1 tab PO DAILY [facility] Omeprazole (Omeprazole 20 Mg Capsule.Dr) 20 mg PO DAILY@0630 [facility] Last Admin: 09/27/21 06:13 Dose: 20 mg Documented by: BETTINA Pharmacy Consult (Consult Rx Perform Med Rec) 1 each MISCELLANE ONCE PRN PRN Reason: Consult order Sertraline HCl (Sertraline Hcl 100 Mg Tablet) 100 mg PO DAILY [facility] Sodium Chloride (0.9 % Sodium Chloride Flush 3 Ml Syringe) 3 ml IVFLUSH QSHIFT [facility] Last Admin: 09/26/21 20:42 Dose: 3 ml Documented by: TOMMY Labs CBC & Chem 7: 09/27/21 04:04 09/27/21 04:04 Labs: Laboratory Results - last 24 hr 09/26/21 09/26/21 09/26/21 10:48 10:48 10:48 MCV 101.0 H MCH 32.5 MCHC 32.2 RDW 19.7 H Plt Count 232 MPV 8.7 L Immature Gran % (Auto) 0.5 H Neut % (Auto) 77.4 H Lymph % (Auto) 9.6 L White % (Auto) 6.8 Eos % (Auto) 4.7 H Baso % (Auto) 1.0 Lymph # (Auto) 0.8 L White # (Auto) 0.5 Eos # (Auto) 0.4 Baso # (Auto) 0.1 Abs Immat Gran (auto) 0.04 H Absolute Neuts (auto) 6.1 Absolute Nucleated RBC 0.000 Nucleated RBC % (auto) 0.0 PT INR Anion Gap 22 H Estim Creat Clear Calc 5.2 Estimated GFR 6 Random Glucose 85 Lactic Acid Calcium 8.7 Magnesium 2.3 Total Bilirubin 0.8 Direct Bilirubin 0.4 AST 13 ALT 8 Alkaline Phosphatase 91 C-Reactive Protein 7.70 H Total Protein 6.5 Albumin 3.5 Lipase 41 COVID-19 ([facility]) Negative COVID-19 Clin Com See Note 09/26/21 09/26/21 09/27/21 10:48 10:48 04:04 MCV 102.2 H MCH 32.2 MCHC 31.5 RDW 19.5 H Plt Count 220 MPV 9.2 L Immature Gran % (Auto) Neut % (Auto) Lymph % (Auto) White % (Auto) Eos % (Auto) Baso % (Auto) Lymph # (Auto) White # (Auto) Eos # (Auto) Baso # (Auto) Abs Immat Gran (auto) Absolute Neuts (auto) Absolute Nucleated RBC 0.000 Nucleated RBC % (auto) 0.0 PT 13.4 H INR 1.2 H Anion Gap Estim Creat Clear Calc Estimated GFR Random Glucose Lactic Acid 0.8 Calcium Magnesium Total Bilirubin Direct Bilirubin AST ALT Alkaline Phosphatase C-Reactive Protein Total Protein Albumin Lipase COVID-19 ([facility]) COVID-19 [employer] Com 09/27/21 04:04 MCV MCH MCHC RDW Plt Count MPV Immature Gran % (Auto) Neut % (Auto) Lymph % (Auto) White % (Auto) Eos % (Auto) Baso % (Auto) Lymph # (Auto) White # (Auto) Eos # (Auto) Baso # (Auto) Abs Immat Gran (auto) Absolute Neuts (auto) Absolute Nucleated RBC Nucleated RBC % (auto) PT INR Anion Gap 22 H Estim Creat Clear Calc 5.0 Estimated GFR 5 Random Glucose 79 Lactic Acid Calcium 8.5 Magnesium Total Bilirubin Direct Bilirubin AST ALT Alkaline Phosphatase C-Reactive Protein Total Protein Albumin Lipase COVID-19 ([facility]) COVID-19 Clin Com Procedures Date of Service Date of Service: 09/27/21 Progress Note: A&P Assessment and plan (1) Diverticulitis: Status: Acute Assessment and Plan: Seems to be doing well CT scan showing of tortuous sigmoid Clinically not obstructed Very minimal tenderness Abdomen soft and benign No leukocytosis Recommend flex sig/colonoscopy Continue antibiotics Hemodialysis today Fall Risk Details Current Medications: Current Medications Acetaminophen (Acetaminophen 325 Mg Tablet) 650 mg PO Q6H PRN PRN Reason: Pain, Mild (Pain Scale 1-3) Allopurinol (Allopurinol 100 Mg Tablet) 100 mg PO BID [facility] Last Admin: 09/26/21 20:42 Dose: 100 mg Documented by: Amlodipine Besylate (Amlodipine Besylate 5 Mg Tablet) 5 mg PO DAILY [facility]; Protocol Cinacalcet (Cinacalcet Hcl 30 Mg Tablet) 30 mg PO DAILY [facility] Heparin Sodium (Porcine) (Heparin Sodium,Porcine 5,000 Unit/Ml Vial) 5,000 unit SUBCUT Q12H [facility] Last Admin: 09/27/21 06:13 Dose: 5,000 unit Documented by: Hydromorphone HCl (Hydromorphone Hcl 0.5 Mg/0.5 Ml Syringe) 0.5 mg IVPUSH Q4H PRN; Protocol PRN Reason: Pain, Severe (Pain Scale 7-10) Piperacillin Sod/Tazobactam (Sod 2.25 gm/ Sodium Chloride) 50 mls @ 100 mls/hr IV Q8H [facility] Last Infusion: 09/27/21 04:03 Dose: Infused Documented by: Labetalol HCl (Labetalol Hcl 200 Mg Tablet) 200 mg PO BID [facility]; Protocol Last Admin: 09/26/21 20:40 Dose: 200 mg Documented by: Multivitamins/Vitamin C (Multivitamin Tablet) 1 tab PO DAILY [facility] Omeprazole (Omeprazole 20 Mg Capsule.Dr) 20 mg PO DAILY@0630 [facility] Last Admin: 09/27/21 06:13 Dose: 20 mg Documented by: Pharmacy Consult (Consult Rx Perform Med Rec) 1 each MISCELLANE ONCE PRN PRN Reason: Consult order Sertraline HCl (Sertraline Hcl 100 Mg Tablet) 100 mg PO DAILY [facility] Sodium Chloride (0.9 % Sodium Chloride Flush 3 Ml Syringe) 3 ml IVFLUSH QSHIFT [facility] Last Admin: 09/26/21 20:42 Dose: 3 ml Documented by: Time Spent With Patient Time: Total time spent is greater than 50% in coordination of care (as documented) at patient's floor/unit and/or counseling patient: Time with patient: 15 - 24 minutes Quality Stroke Does the patient have a stroke diagnosis?: No VTE Prior VTE?: No VTE Risk Level:: Medical - moderate - high VTE Device Contraindication: N/A - Device Ordered VTE Drug Contraindication: N/A - Med Ordered
--- NOTE | 2021-09-27 08:46 | P.EN_ITS ---
Event Note Date of Service: 09/27/21 Event Note: GI Consult-Full note dictated Imp: Patient's history seems most c/w episodic diverticulitis and some radiographic abnormalities of the sigmoid colon on that basis. As he describes multiple colonoscopies in the past and based on the description of the most recent CT scan, I doubt this represents a neoplasm. Given his history this does not seem c/w IBD either. At the present time he appears very comfortable, is eating breakfast, and his abdominal exam is benign. He reports no BM for a while . In addition to resolving diverticulitis, I think constipation plays a role here as well. Rec: Continue antibiotics but it looks like he can be switched to oral antibi otics to finish his treatment. Continue diet as tolerated. I added a daily dose of Miralax to his regimen. I would not recommend a sigmoidoscopy/colonoscopy at this time given the recent presumed diverticulitis, but we may want to consider that in the future once he has completed his course of antibiotics and I can review his outpatient GI records. If indeed he has had a procedure in the past 1-2 years to visualize the left colon then he may not need another exam. I can see the patient in the office as an outpatient if he desires, or he can follow up with his primary GI MD. Thanks.
[2021-09-27] MEDS: Cinacalcet HCl 30 MG TABLET PO (08:51)
[2021-09-27] MEDS: Sertraline HCL 100 MG TABLET PO (08:52)
[2021-09-27] MEDS: 0.9 % Sodium Chloride Flush 3 ML SYRINGE IVFLUSH ×3 (08:52→22:39)
[2021-09-27] MEDS: amLODIPine Besylate 5 MG TABLET PO (08:52)
[2021-09-27] MEDS: Multivitamin TABLET 1 TAB PO (08:52)
[2021-09-27] MEDS: Labetalol HCL 200 MG TABLET PO ×2 (08:52→22:38)
[2021-09-27] MEDS: allopurinoL 100 MG TABLET PO ×2 (08:52→22:37)
[2021-09-27] MEDS: Sodium Zirconium Cyclosilicate 10 GM POWD.PACK PO (08:52)
[2021-09-27] MEDS: polyethylene glycoL 3350 17 GM POWD.PACK PO (09:32)
--- NOTE | 2021-09-27 10:48 | P.PNNP_ITS ---
Subjective Subjective Date of Service: 09/27/21 Interval history: Events noted Seen during HD Physical Exam Vital Signs: Vital Signs: Last Vital Signs Temp 97 F 09/27/21 07:05 Pulse 71 09/27/21 07:05 Resp 18 09/27/21 07:05 BP 127/75 09/27/21 07:05 Pulse Ox 93 09/27/21 07:05 BMI result Body Mass Index 20.1 Const: General: comfortable Orientation/consciousness: patient oriented x3 HENMT: Head: Yes normal to inspection Eyes: Eyelids: Yes eyelids normal EOM: EOMs intact bilaterally Neck: Neck: Yes supple Resp: Auscultation: diminished lung sounds Cardio: Jugular venous distension: no JVD GI: Palpation (GI): Soft to palpation and Tenderness to palpation present (GI) Neuro: General: patient oriented x3 and moves all extremities Objective Data Labs CBC & Chem 7: 09/27/21 04:04 09/27/21 04:04 Labs: Laboratory Results - last 24 hr 09/26/21 09/26/21 09/26/21 10:48 10:48 10:48 WBC 7.9 RBC 3.11 L Hgb 10.1 L Hct 31.4 L MCV 101.0 H MCH 32.5 MCHC 32.2 RDW 19.7 H Plt Count 232 MPV 8.7 L Immature Gran % (Auto) 0.5 H Neut % (Auto) 77.4 H Lymph % (Auto) 9.6 L Mason % (Auto) 6.8 Eos % (Auto) 4.7 H Baso % (Auto) 1.0 Lymph # (Auto) 0.8 L Mason # (Auto) 0.5 Eos # (Auto) 0.4 Baso # (Auto) 0.1 Abs Immat Gran (auto) 0.04 H Absolute Neuts (auto) 6.1 Absolute Nucleated RBC 0.000 Nucleated RBC % (auto) 0.0 PT INR Sodium 143 Potassium 4.8 Chloride 103 Carbon Dioxide 23 Anion Gap 22 H BUN 68 H Creatinine 9.16 H* Estim Creat Clear Calc 5.2 Estimated GFR 6 Random Glucose 85 Lactic Acid Calcium 8.7 Magnesium 2.3 Total Bilirubin 0.8 Direct Bilirubin 0.4 AST 13 ALT 8 Alkaline Phosphatase 91 C-Reactive Protein 7.70 H Total Protein 6.5 Albumin 3.5 Lipase 41 COVID-19 ([facility]) Negative COVID-Recoup See Note 09/26/21 09/26/21 09/27/21 10:48 10:48 04:04 WBC 8.6 RBC 2.73 L Hgb 8.8 L Hct 27.9 L MCV 102.2 H MCH 32.2 MCHC 31.5 RDW 19.5 H Plt Count 220 MPV 9.2 L Immature Gran % (Auto) Neut % (Auto) Lymph % (Auto) Mason % (Auto) Eos % (Auto) Baso % (Auto) Lymph # (Auto) Mason # (Auto) Eos # (Auto) Baso # (Auto) Abs Immat Gran (auto) Absolute Neuts (auto) Absolute Nucleated RBC 0.000 Nucleated RBC % (auto) 0.0 PT 13.4 H INR 1.2 H Sodium Potassium Chloride Carbon Dioxide Anion Gap BUN Creatinine Estim Creat Clear Calc Estimated GFR Random Glucose Lactic Acid 0.8 Calcium Magnesium Total Bilirubin Direct Bilirubin AST ALT Alkaline Phosphatase C-Reactive Protein Total Protein Albumin Lipase COVID-19 ([facility]) [employer] 09/27/21 04:04 WBC RBC Hgb Hct MCV MCH MCHC RDW Plt Count MPV Immature Gran % (Auto) Neut % (Auto) Lymph % (Auto) Mason % (Auto) Eos % (Auto) Baso % (Auto) Lymph # (Auto) Mason # (Auto) Eos # (Auto) Baso # (Auto) Abs Immat Gran (auto) Absolute Neuts (auto) Absolute Nucleated RBC Nucleated RBC % (auto) PT INR Sodium 142 Potassium 5.6 H Chloride 103 Carbon Dioxide 23 Anion Gap 22 H BUN 76 H Creatinine 9.79 H* Estim Creat Clear Calc 5.0 Estimated GFR 5 Random Glucose 79 Lactic Acid Calcium 8.5 Magnesium Total Bilirubin Direct Bilirubin AST ALT Alkaline Phosphatase C-Reactive Protein Total Protein Albumin Lipase COVID-19 ([facility]) [employer] Procedures Date of Service Date of Service: 09/27/21 Assessment & Plan Assessment and plan (1) ESRD (end stage renal disease) on dialysis: Status: Acute Plan ESRD Usually gets HD on MWF HD on MWF Volume optimization on HD Mild hyperkalemia keep on low K diet K2 bath with HD Anemia Resume Epogen Renal Diet- 2 Gram Na/K/Phos restricted Fluid restriction 1.5 L/ 24 hours Time Spent With Patient Time: Total time spent is greater than 50% in coordination of care (as documented) at patient's floor/unit and/or counseling patient: Time with patient: 15 - 24 minutes Progress Note: Quality Stroke Does the patient have a stroke diagnosis?: No
--- NOTE | 2021-09-27 12:15 | P.PNIM_ITS ---
Subjective Subjective Date of Service: 09/27/21 Interval History: Abd pain improved Nausea improved Still no BM Review of Systems Review of Systems: Yes all other systems are reviewed and are negative Physical Exam Vital Signs: Vital Signs: Last Vital Signs Temp 97.2 F 09/27/21 11:10 Pulse 61 09/27/21 11:10 Resp 18 09/27/21 11:10 BP 142/68 H 09/27/21 11:10 Pulse Ox 92 09/27/21 11:10 BMI result Body Mass Index 20.1 Gen: in no acute distress HEENT: sclera anicteric, moist mucus membranes Neck: supple Lungs: clear to auscultation bilaterally Heart: regular rate and rhythm, no murmurs Abd: soft, minimally tender without rebound, no masses, no HSM Ext: no edema; LUE fistula Skin: warm/well-perfused Neuro: alert and oriented x3, no focal findings Psych: appropriate affect Objective Data Active Medications Acetaminophen (Acetaminophen 325 Mg Tablet) 650 mg PO Q6H PRN PRN Reason: Pain, Mild (Pain Scale 1-3) Allopurinol (Allopurinol 100 Mg Tablet) 100 mg PO BID [facility] Last Admin: 09/27/21 08:52 Dose: 100 mg Documented by: SHANNON Amlodipine Besylate (Amlodipine Besylate 5 Mg Tablet) 5 mg PO DAILY [facility]; Protocol Last Admin: 09/27/21 08:52 Dose: 5 mg Documented by: SHANNON Cinacalcet (Cinacalcet Hcl 30 Mg Tablet) 30 mg PO DAILY [facility] Last Admin: 09/27/21 08:51 Dose: 30 mg Documented by: SHANNON Heparin Sodium (Porcine) (Heparin Sodium,Porcine 5,000 Unit/Ml Vial) 5,000 unit SUBCUT Q12H [facility] Last Admin: 09/27/21 06:13 Dose: 5,000 unit Documented by: BETTINA Hydromorphone HCl (Hydromorphone Hcl 0.5 Mg/0.5 Ml Syringe) 0.5 mg IVPUSH Q4H PRN; Protocol PRN Reason: Pain, Severe (Pain Scale 7-10) Piperacillin Sod/Tazobactam (Sod 2.25 gm/ Sodium Chloride) 50 mls @ 100 mls/hr IV Q8H [facility] Last Admin: 09/27/21 12:13 Dose: Not Given Documented by: SHANNON Non-Admin Reason: Off unit: Dialysis Labetalol HCl (Labetalol Hcl 200 Mg Tablet) 200 mg PO BID [facility]; Protocol Last Admin: 09/27/21 08:52 Dose: 200 mg Documented by: SHANNON Multivitamins/Vitamin C (Multivitamin Tablet) 1 tab PO DAILY [facility] Last Admin: 09/27/21 08:52 Dose: 1 tab Documented by: SHANNON Omeprazole (Omeprazole 20 Mg Capsule.) 20 mg PO DAILY@0630 [facility] Last Admin: 09/27/21 06:13 Dose: 20 mg Documented by: BETTINA Pharmacy Consult (Consult Rx Perform Med Rec) 1 each MISCELLANE ONCE PRN PRN Reason: Consult order Polyethylene Glycol (Polyethylene Glycol 3350 17 Gm Powd.Pack) 17 gm PO DAILY [facility] Last Admin: 09/27/21 09:32 Dose: 17 gm Documented by: SHANNON Sertraline HCl (Sertraline Hcl 100 Mg Tablet) 100 mg PO DAILY [facility] Last Admin: 09/27/21 08:52 Dose: 100 mg Documented by: SHANNON Sodium Chloride (0.9 % Sodium Chloride Flush 3 Ml Syringe) 3 ml IVFLUSH QSHIFT [facility] Last Admin: 09/27/21 08:52 Dose: 3 ml Documented by: SHANNON Labs CBC & Chem 7: 09/27/21 04:04 09/27/21 04:04 Labs: Laboratory Results - last 24 hr 09/26/21 09/27/21 09/27/21 10:48 04:04 04:04 MCV 102.2 H MCH 32.2 MCHC 31.5 RDW 19.5 H Plt Count 220 MPV 9.2 L Absolute Nucleated RBC 0.000 Nucleated RBC % (auto) 0.0 Anion Gap 22 H Estim Creat Clear Calc 5.0 Estimated GFR 5 Random Glucose 79 Calcium 8.5 C-Reactive Protein 7.70 H Assessment and Plan (1) Diverticulitis: Status: Acute [facility] hospital d#2 86yo legally blind M with ESRD on HD MWF, anemia of CKD, HFpEF, GERD, AAA s/p EVAR, HTN, gout, prostate CA s/p radical prostatectomy, hx GI bleed, hx colonic polyp s/p polypectomy; recently admitted to [facility] [place] for acute diverticulitis treated with antibiotics, presenting with recurrent diverticulitis causing missed HD # sigmoid diverticulitis, recurrent vs non-resolved - pip/moses d#2, GI consulted, outpt sigmoidoscopy/colonoscopy recommended # constipation - daily MiraLax # hyperK - SZC 10g today, HD today # ESRD on HD - missed HD MW; to get HD today and resume MWF schedule tomorrow - continue cinacalcet # possible liver cyst - GI consult, outpt MRI # R kidney cyst vs. renal mass - outpt MRI # HTN # HFpEF - continue amlodipine + labetalol # gout - continue allopurinol # GERD - continue PPI # VTE ppx - UFH # dispo - possibly home tomorrow on amox/clav PO if continues to improve Quality Stroke Does the patient have a stroke diagnosis?: No VTE Prior VTE?: No VTE Risk Level:: Medical - moderate - high VTE Device Contraindication: N/A - Device Ordered VTE Drug Contraindication: N/A - Med Ordered
--- NOTE | 2021-09-27 15:43 | MHC.CM.PN ---
PT REPORTS HE LIVES AT HOME WITH HIS AND IS INDEPENDENT WITH SELF CARE HE REPORTS HE HAS A [employer] [facility] SET UP THROUGH THE [facility] THAT PROVIDES HOUSEKEEPING PT REPORTS HE HAS NOT SEEN A PCP IS YEARS, HE WAS ACTIVE WITH LIMA LINCOLN AND A DOCTOR AT THE [facility] HOWEVER THE ONLY ONE HE SEES IS HIS DOCTOR AT THE HD CLINIC IN [place], GUILLERMO RAINEY. HE REPORTS IF HE NEEDS ANYTHING, DR RAINEY USUALLY ORDERS IT OR POINTS HIM IN THE RIGHT DIRECTION . PT REPORTS HE USES A SCOOTER TO GET AROUND IN THE COMMUNITY AND TAKES THE PVTA TO HD EVERY M-W-F. PT REPORTS HE HAS A HCP NAMING HIS AND DAUGHTER HIS AGENTS-COPY REQUESTED PT REPORTS HE IS VACCINATED AGAINST COVID-19 X 3. IMM DELIVERED CURRENT DC PLAN IS HOME WITH RESUMPTION OF [employer] AND HD SERVICES TO TRANSPORT
[2021-09-28 04:00] VITALS: BP 105/57; PULSE 74; RESP 16; TEMP 36.6; O2SAT 95
[2021-09-28] MEDS: Piperacillin Sodium/Tazobactam 2.25 GM in 0.9 % Sodium Chloride 50 ML IV ×2 (04:00→18:21)
--- NOTE | 2021-09-28 05:10 | CONS_ITS ---
DATE OF SERVICE: 09/27/2021 REASON FOR CONSULTATION: Abnormal CT scan of colon, abdominal discomfort, and history of diverticulitis. HISTORY OF PRESENT ILLNESS: The patient is an 86-year-old male with chronic renal failure on long-standing hemodialysis, who apparently has had a history of at least recent diverticulitis. He had been hospitalized recently at [facility] for an apparent episode of left-sided diverticulitis, treated with antibiotics. He was discharged from there, but was admitted here shortly thereafter due to some ongoing lower abdominal discomfort. The patient relates a history of some constipation. He does describe having had at least 2 or 3 previous colonoscopies and underwent a more recent attempted colonoscopy at [facility], but this was only successful to the sigmoid colon as the scope could not be advanced further. At the present time, the patient has been on IV antibiotics. He reports that he has been somewhat constipated. He did start eating last evening and is presently eating breakfast comfortably during our conversation. He still has some mild lower abdominal discomfort, but thinks this is somewhat better. He has not noticed any hematochezia nor melena. He denies any significant diarrhea. He denies any nausea, vomiting, dysphagia, nor any chronic heartburn. He denies any known family history of colorectal cancer nor inflammatory bowel disease. He has been afebrile in the hospital. MEDICATIONS: His present medications include allopurinol, amlodipine, Sensipar, labetalol, vitamins, IV Zosyn, Zoloft, and Tylenol. PAST MEDICAL HISTORY: He describes a partial colon resection many years ago for a large polyp, but reports there was no associated cancer. He has had a prostatectomy for cancer, but reports there was no radiation treatments. He has had an abdominal aortic aneurysm repair. He has end-stage renal disease and is on chronic dialysis. Other medical problems include gastroesophageal reflux, gout, prostate cancer, hypertension, legally blind. He also has history of depression and heart failure. SOCIAL HISTORY: He is . He does not smoke nor use any significant amounts of alcohol. FAMILY HISTORY: Noncontributory. REVIEW OF SYSTEMS: CONSTITUTIONAL: He has been feeling tired and somewhat weak at home. SKIN: No rash. No pruritus. CARDIAC: No chest pain. PULMONARY: No cough, no hemoptysis. GI: As above. PHYSICAL EXAMINATION: GENERAL: The patient is a thin, elderly alert male. SKIN: Warm and dry. EYES: Anicteric sclerae. ABDOMEN: Soft, nondistended, normal bowel sounds and without any focal tenderness, mass, rebound, or guarding. LABORATORY DATA: His CT scan of the abdomen and pelvis from yesterday describes severe diverticulosis of the colon with a distal sigmoid colon appearing abnormal . There is abnormal thickening and some enhancement with irregularity of the sigmoid colon. There is a suspicion of either diverticulitis or mass. There was also a long segment of diffuse wall thickening of the more proximal left colon and sigmoid colon as well. There was some associated lymphadenopathy in that area. There was evidence of a right colectomy and there was no evidence of any bowel obstruction. White blood cell count 8.6, hemoglobin 8.8, MCV 102, platelets 220,000. PT 13.4 with INR 1.2. Sodium 142, potassium 5.6, chloride 103, CO2 of 23, BUN 76, creatinine 9.8. Normal liver profile. C-reactive protein of 7.7. Lipase 41. COVID was negative. IMPRESSION: Given the patient's clinical history, previous history, and current CT scan imaging, I suspect we are dealing with underlying chronic diverticular disease. Given the reported previous colonoscopies and his current history, I doubt we are dealing with GI neoplasm nor inflammatory bowel disease. At the present time, his abdominal exam appears benign and he seems to be very comfortable while eating, and therefore, I do think the component of diverticulitis and inflammation is subsiding. At this point, I would hold off on any attempt at endoscopic evaluation with sigmoidoscopy nor colonoscopy given what appears to be some resolving diverticulitis. I would add some MiraLAX on a daily basis to help with any constipation that might be contributing to any ongoing discomfort. It appears that his IV antibiotics can probably switch to oral antibiotics at this point. I will continue his diet as tolerated. At some point, we may want to consider having him undergo a sigmoidoscopy or colonoscopy. I would recommend this be done as an outpatient at least [address] It would be important to obtain any previous colonoscopy reports that he had as well. If indeed, he had a colonoscopy in the past 1 or 2 years that visualize left colon then he may not need any further endoscopic studies. I would be happy to see the patient in the office as an outpatient if he so desires or he can follow up with his previous GI MD. This has been discussed with the patient in detail. He is comfortable with that plan. Thank you for the consultation. MD DERRICK Porras/TALIB / [id number]
[2021-09-28] MEDS: Heparin Sodium,Porcine 5,000 UNIT/ML VIAL 5000 UNIT SUBCUT ×2 (05:42→18:22)
[2021-09-28] MEDS: Omeprazole 20 MG CAPSULE.DR PO (05:42)
[2021-09-28 06:12] LABS: Hematocrit 27.9 % (42.0-52.0); Hemoglobin 8.7 g/dl (14.0-18.0); Mean Corpuscular HGB Conc 31.2 g/dl (31.0-36.0); Mean Corpuscular Hemoglobin 32.2 pg (27.0-33.0); Mean Corpuscular Volume 103.3 fL (80.0-98.0); Platelet Count 208 X10*3/uL (160-400); Red Cell Distribution Width 18.8 % (11.0-16.0); White Blood Count 6.4 X10*3/uL (4.8-10.8)
[2021-09-28 06:37] LABS: Anion Gap 17 (12-20); Blood Urea Nitrogen 30 mg/dL (9-16); C Reactive Protein 7.41 mg/dL (< or = 0.50); Calcium 8.4 mg/dL (8.4-10.2); Carbon Dioxide 23 mmol/L (22-29); Chloride 102 mmol/L (96-108); Estimated Glomerular Filt Rate 10; Glucose Random 75 mg/dL (60-115); Potassium 4.4 mmol/L (3.3-5.1); Sodium 138 mmol/L (135-145)
[2021-09-28 07:20] VITALS: BP 119/67; PULSE 76; RESP 18; TEMP 36.1; O2SAT 94
[2021-09-28] MEDS: polyethylene glycoL 3350 17 GM POWD.PACK PO (13:56)
[2021-09-28] MEDS: Lactulose 20 GM/30 ML SOLUTION PO (13:56)
--- NOTE | 2021-09-28 14:35 | PM.PNNEP ---
Subjective Subjective Date of Service: 09/28/21 Interval history: seen and examined had HD this morning feels better Physical Exam Vital Signs: Vital Signs: Last Vital Signs Temp 97 F 09/28/21 07:20 Pulse 76 09/28/21 07:20 Resp 18 09/28/21 07:20 BP 119/67 09/28/21 07:20 Pulse Ox 94 09/28/21 07:20 BMI result Body Mass Index 20.1 Const: General: no acute distress HENMT: Head: Yes normocephalic and Yes atraumatic Neck: Neck: Yes supple Resp: Auscultation: clear to auscultation bilaterally Cardio: Heart sounds: S1 normal heart sound present and S2 normal heart sound present GI: Palpation (GI): Soft to palpation and nontender Extrem: General: No pedal edema Objective Data Labs CBC & Chem 7: 09/28/21 05:38 09/28/21 05:38 Labs: Laboratory Results - last 24 hr 09/28/21 09/28/21 05:38 05:38 WBC 6.4 RBC 2.70 L Hgb 8.7 L Hct 27.9 L MCV 103.3 H MCH 32.2 MCHC 31.2 RDW 18.8 H Plt Count 208 MPV 9.0 L Absolute Nucleated RBC 0.000 Nucleated RBC % (auto) 0.0 Sodium 138 Potassium 4.4 D Chloride 102 Carbon Dioxide 23 Anion Gap 17 BUN 30 H D Creatinine 5.50 H* Estim Creat Clear Calc 9.0 Estimated GFR 10 Random Glucose 75 Calcium 8.4 C-Reactive Protein 7.41 H Microbiology Microbiology Results: Microbiology 09/26/21 10:48 Blood - Venous Blood Culture - Preliminary No growth after 48 hours. 09/26/21 10:48 Blood - Venous Blood Culture - Preliminary No growth after 48 hours. Procedures Date of Service Date of Service: 09/28/21 Assessment & Plan Assessment and plan (1) ESRD (end stage renal disease) on dialysis: Status: Acute (2) Diverticulitis: Status: Acute (3) Anemia: Status: Acute Plan known ESRD has HD m-w- at [facility] dialysis unit multiple admission with diverticulitis h//o HFpEF REC HD per schedule renal diet KATY per protocol phosphate binders Time Spent With Patient Time: Total time spent is greater than 50% in coordination of care (as documented) at patient's floor/unit and/or counseling patient: Progress Note: Quality Stroke Does the patient have a stroke diagnosis?: No
--- NOTE | 2021-09-28 15:07 | PM.PNGS ---
Subjective Subjective Date of Service: 09/28/21 Interval history: Denies abdominal pain Tolerating diet Just finished hemodialysis session Says he feels well Physical Exam Vital Signs: Vital Signs: Last Vital Signs Temp 97 F 09/28/21 07:20 Pulse 76 09/28/21 07:20 Resp 18 09/28/21 07:20 BP 119/67 09/28/21 07:20 Pulse Ox 94 09/28/21 07:20 BMI result Body Mass Index 20.1 Const: General: comfortable and no acute distress Resp: Effort & Inspection: normal respiratory effort Cardio: Rate: regular rate GI: Palpation (GI): Soft to palpation and nontender Objective Data Active Medications Acetaminophen (Acetaminophen 325 Mg Tablet) 650 mg PO Q6H PRN PRN Reason: Pain, Mild (Pain Scale 1-3) Allopurinol (Allopurinol 100 Mg Tablet) 100 mg PO BID [facility] Last Admin: 09/28/21 09:47 Dose: Not Given Documented by: SHANNON Non-Admin Reason: Off unit: Dialysis Amlodipine Besylate (Amlodipine Besylate 5 Mg Tablet) 5 mg PO DAILY [facility]; Protocol Last Admin: 09/28/21 09:47 Dose: Not Given Documented by: SHANNON Non-Admin Reason: Off unit: Dialysis Cinacalcet (Cinacalcet Hcl 30 Mg Tablet) 30 mg PO DAILY [facility] Last Admin: 09/28/21 09:47 Dose: Not Given Documented by: SHANNON Non-Admin Reason: Off unit: Dialysis Heparin Sodium (Porcine) (Heparin Sodium,Porcine 5,000 Unit/Ml Vial) 5,000 unit SUBCUT Q12H [facility] Last Admin: 09/28/21 05:42 Dose: 5,000 unit Documented by: HILARIA Hydromorphone HCl (Hydromorphone Hcl 0.5 Mg/0.5 Ml Syringe) 0.5 mg IVPUSH Q4H PRN; Protocol PRN Reason: Pain, Severe (Pain Scale 7-10) Piperacillin Sod/Tazobactam (Sod 2.25 gm/ Sodium Chloride) 50 mls @ 100 mls/hr IV Q8H [facility] Last Admin: 09/28/21 12:39 Dose: Not Given Documented by: SHANNON Non-Admin Reason: Off unit: Dialysis Labetalol HCl (Labetalol Hcl 200 Mg Tablet) 200 mg PO BID [facility]; Protocol Last Admin: 09/28/21 09:48 Dose: Not Given Documented by: SHANNON Non-Admin Reason: Off unit: Dialysis Lactulose (Lactulose 20 Gm/30 Ml Solution) 20 gm PO BID [facility] Last Admin: 09/28/21 13:56 Dose: 20 gm Documented by: SHANNON Multivitamins/Vitamin C (Multivitamin Tablet) 1 tab PO DAILY [facility] Last Admin: 09/28/21 09:48 Dose: Not Given Documented by: SHANNON Non-Admin Reason: Off unit: Dialysis Omeprazole (Omeprazole 20 Mg Capsule.) 20 mg PO DAILY@0630 [facility] Last Admin: 09/28/21 05:42 Dose: 20 mg Documented by: HILARIA Pharmacy Consult (Consult Rx Perform Med Rec) 1 each MISCELLANE ONCE PRN PRN Reason: Consult order Polyethylene Glycol (Polyethylene Glycol 3350 17 Gm Powd.Pack) 17 gm PO DAILY [facility] Last Admin: 09/28/21 13:56 Dose: 17 gm Documented by: SHANNON Sertraline HCl (Sertraline Hcl 100 Mg Tablet) 100 mg PO DAILY [facility] Last Admin: 09/28/21 09:48 Dose: Not Given Documented by: SHANNON Non-Admin Reason: Off unit: Dialysis Sodium Chloride (0.9 % Sodium Chloride Flush 3 Ml Syringe) 3 ml IVFLUSH QSHIFT [facility] Last Admin: 09/28/21 09:46 Dose: Not Given Documented by: SHANNON Non-Admin Reason: Off unit: Dialysis Labs CBC & Chem 7: 09/28/21 05:38 09/28/21 05:38 Labs: Laboratory Results - last 24 hr 09/28/21 09/28/21 05:38 05:38 MCV 103.3 H MCH 32.2 MCHC 31.2 RDW 18.8 H Plt Count 208 MPV 9.0 L Absolute Nucleated RBC 0.000 Nucleated RBC % (auto) 0.0 Anion Gap 17 Estim Creat Clear Calc 9.0 Estimated GFR 10 Random Glucose 75 Calcium 8.4 C-Reactive Protein 7.41 H Microbiology Microbiology Results: Microbiology 09/26/21 10:48 Blood Culture - Preliminary Blood - Venous No growth after 48 hours. 09/26/21 10:48 Blood Culture - Preliminary Blood - Venous No growth after 48 hours. Procedures Date of Service Date of Service: 09/28/21 Progress Note: A&P Assessment and plan (1) Diverticulitis: Status: Acute Assessment and Plan: Has had no pain or tenderness on the abdomen Passing flatus Says he is constipated Okay to start on stool softeners - Colace order Exam benign Complete antibiotic treatment Fall Risk Details Current Medications: Current Medications Acetaminophen (Acetaminophen 325 Mg Tablet) 650 mg PO Q6H PRN PRN Reason: Pain, Mild (Pain Scale 1-3) Allopurinol (Allopurinol 100 Mg Tablet) 100 mg PO BID [facility] Last Admin: 09/28/21 09:47 Dose: Not Given Documented by: Amlodipine Besylate (Amlodipine Besylate 5 Mg Tablet) 5 mg PO DAILY [facility]; Protocol Last Admin: 09/28/21 09:47 Dose: Not Given Documented by: Cinacalcet (Cinacalcet Hcl 30 Mg Tablet) 30 mg PO DAILY [facility] Last Admin: 09/28/21 09:47 Dose: Not Given Documented by: Heparin Sodium (Porcine) (Heparin Sodium,Porcine 5,000 Unit/Ml Vial) 5,000 unit SUBCUT Q12H [facility] Last Admin: 09/28/21 05:42 Dose: 5,000 unit Documented by: Hydromorphone HCl (Hydromorphone Hcl 0.5 Mg/0.5 Ml Syringe) 0.5 mg IVPUSH Q4H PRN; Protocol PRN Reason: Pain, Severe (Pain Scale 7-10) Piperacillin Sod/Tazobactam (Sod 2.25 gm/ Sodium Chloride) 50 mls @ 100 mls/hr IV Q8H [facility] Last Admin: 09/28/21 12:39 Dose: Not Given Documented by: Labetalol HCl (Labetalol Hcl 200 Mg Tablet) 200 mg PO BID [facility]; Protocol Last Admin: 09/28/21 09:48 Dose: Not Given Documented by: Lactulose (Lactulose 20 Gm/30 Ml Solution) 20 gm PO BID [facility] Last Admin: 09/28/21 13:56 Dose: 20 gm Documented by: Multivitamins/Vitamin C (Multivitamin Tablet) 1 tab PO DAILY [facility] Last Admin: 09/28/21 09:48 Dose: Not Given Documented by: Omeprazole (Omeprazole 20 Mg Capsule.Dr) 20 mg PO DAILY@0630 [facility] Last Admin: 09/28/21 05:42 Dose: 20 mg Documented by: Pharmacy Consult (Consult Rx Perform Med Rec) 1 each MISCELLANE ONCE PRN PRN Reason: Consult order Polyethylene Glycol (Polyethylene Glycol 3350 17 Gm Powd.Pack) 17 gm PO DAILY [facility] Last Admin: 09/28/21 13:56 Dose: 17 gm Documented by: Sertraline HCl (Sertraline Hcl 100 Mg Tablet) 100 mg PO DAILY [facility] Last Admin: 09/28/21 09:48 Dose: Not Given Documented by: Sodium Chloride (0.9 % Sodium Chloride Flush 3 Ml Syringe) 3 ml IVFLUSH QSHIFT [facility] Last Admin: 09/28/21 09:46 Dose: Not Given Documented by: Time Spent With Patient Time: Total time spent is greater than 50% in coordination of care (as documented) at patient's floor/unit and/or counseling patient: Time with patient: 15 - 24 minutes Quality Stroke Does the patient have a stroke diagnosis?: No VTE Prior VTE?: No VTE Risk Level:: Medical - moderate - high VTE Device Contraindication: N/A - Device Ordered VTE Drug Contraindication: N/A - Med Ordered
[2021-09-28 15:14] VITALS: BP 138/68; PULSE 86; RESP 18; TEMP 36.8; O2SAT 94
--- NOTE | 2021-09-28 15:36 | P.PNIM_ITS ---
Subjective Subjective Date of Service: 09/28/21 Interval History: No BM yet Abd pain improved, nausea improved HD today Review of Systems Review of Systems: Yes all other systems are reviewed and are negative Physical Exam Vital Signs: Vital Signs: Last Vital Signs Temp 98.2 F 09/28/21 15:14 Pulse 86 09/28/21 15:14 Resp 18 09/28/21 15:14 BP 138/68 09/28/21 15:14 Pulse Ox 94 09/28/21 15:14 BMI result Body Mass Index 20.1 Gen: in no acute distress HEENT: sclera anicteric, moist mucus membranes Neck: supple Lungs: clear to auscultation bilaterally Heart: regular rate and rhythm, no murmurs Abd: soft, minimally tender without rebound, no masses, no HSM Ext: no edema; LUE fistula Skin: warm/well-perfused Neuro: alert and oriented x3, no focal findings Psych: appropriate affect Objective Data Active Medications Acetaminophen (Acetaminophen 325 Mg Tablet) 650 mg PO Q6H PRN PRN Reason: Pain, Mild (Pain Scale 1-3) Allopurinol (Allopurinol 100 Mg Tablet) 100 mg PO BID [facility] Last Admin: 09/28/21 09:47 Dose: Not Given Documented by: SHANNON Non-Admin Reason: Off unit: Dialysis Amlodipine Besylate (Amlodipine Besylate 5 Mg Tablet) 5 mg PO DAILY [facility]; Protocol Last Admin: 09/28/21 09:47 Dose: Not Given Documented by: SHANNON Non-Admin Reason: Off unit: Dialysis Cinacalcet (Cinacalcet Hcl 30 Mg Tablet) 30 mg PO DAILY [facility] Last Admin: 09/28/21 09:47 Dose: Not Given Documented by: SHANNON Non-Admin Reason: Off unit: Dialysis Docusate Sodium (Docusate Sodium 100 Mg Capsule) 100 mg PO BID [facility] Heparin Sodium (Porcine) (Heparin Sodium,Porcine 5,000 Unit/Ml Vial) 5,000 unit SUBCUT Q12H [facility] Last Admin: 09/28/21 05:42 Dose: 5,000 unit Documented by: SANJANAASY Hydromorphone HCl (Hydromorphone Hcl 0.5 Mg/0.5 Ml Syringe) 0.5 mg IVPUSH Q4H PRN; Protocol PRN Reason: Pain, Severe (Pain Scale 7-10) Piperacillin Sod/Tazobactam (Sod 2.25 gm/ Sodium Chloride) 50 mls @ 100 mls/hr IV Q8H [facility] Last Admin: 09/28/21 12:39 Dose: Not Given Documented by: SHANNON Non-Admin Reason: Off unit: Dialysis Labetalol HCl (Labetalol Hcl 200 Mg Tablet) 200 mg PO BID [facility]; Protocol Last Admin: 09/28/21 09:48 Dose: Not Given Documented by: SHANNON Non-Admin Reason: Off unit: Dialysis Lactulose (Lactulose 20 Gm/30 Ml Solution) 20 gm PO BID [facility] Last Admin: 09/28/21 13:56 Dose: 20 gm Documented by: SHANNON Multivitamins/Vitamin C (Multivitamin Tablet) 1 tab PO DAILY [facility] Last Admin: 09/28/21 09:48 Dose: Not Given Documented by: SHANNON Non-Admin Reason: Off unit: Dialysis Omeprazole (Omeprazole 20 Mg Capsule.) 20 mg PO DAILY@0630 [facility] Last Admin: 09/28/21 05:42 Dose: 20 mg Documented by: HILARIA Pharmacy Consult (Consult Rx Perform Med Rec) 1 each MISCELLANE ONCE PRN PRN Reason: Consult order Polyethylene Glycol (Polyethylene Glycol 3350 17 Gm Powd.Pack) 17 gm PO DAILY [facility] Last Admin: 09/28/21 13:56 Dose: 17 gm Documented by: SHANNON Sertraline HCl (Sertraline Hcl 100 Mg Tablet) 100 mg PO DAILY [facility] Last Admin: 09/28/21 09:48 Dose: Not Given Documented by: SHANNON Non-Admin Reason: Off unit: Dialysis Sodium Chloride (0.9 % Sodium Chloride Flush 3 Ml Syringe) 3 ml IVFLUSH QSHIFT [facility] Last Admin: 09/28/21 09:46 Dose: Not Given Documented by: SHANNON Non-Admin Reason: Off unit: Dialysis Labs CBC & Chem 7: 09/28/21 05:38 09/28/21 05:38 Labs: Laboratory Results - last 24 hr 09/28/21 09/28/21 05:38 05:38 MCV 103.3 H MCH 32.2 MCHC 31.2 RDW 18.8 H Plt Count 208 MPV 9.0 L Absolute Nucleated RBC 0.000 Nucleated RBC % (auto) 0.0 Anion Gap 17 Estim Creat Clear Calc 9.0 Estimated GFR 10 Random Glucose 75 Calcium 8.4 C-Reactive Protein 7.41 H Microbiology Microbiology Results: Microbiology 09/26/21 10:48 Blood Culture - Preliminary Blood - Venous No growth after 48 hours. 09/26/21 10:48 Blood Culture - Preliminary Blood - Venous No growth after 48 hours. Assessment and Plan (1) Diverticulitis: Status: Acute [facility] hospital d#3 86yo legally blind M with ESRD on HD MWF, anemia of CKD, HFpEF, GERD, AAA s/p EVAR, HTN, gout, prostate CA s/p radical prostatectomy, hx GI bleed, hx colonic polyp s/p polypectomy; recently admitted to [facility] for acute diverticulitis treated with antibiotics, presenting with recurrent diverticulitis causing missed HD # sigmoid diverticulitis, recurrent vs non-resolved - pip/moses d#3, GI consulted, outpt sigmoidoscopy/colonoscopy recommended, transition to amox/clav upon discharge # constipation - daily MiraLax- add senna/docusate # hyperK - resolved p SZ[facility] + HD # ESRD on HD - HD done , resumed MWF schedule today - continue cinacalcet # possible liver cyst - GI consult, outpt MRI # R kidney cyst vs. renal mass - outpt MRI # HTN # HFpEF - continue amlodipine + labetalol # gout - continue allopurinol # GERD - continue PPI # VTE ppx - UFH # dispo - possibly home tomorrow on amox/clav PO if continues to improve Quality Stroke Does the patient have a stroke diagnosis?: No VTE Prior VTE?: No VTE Risk Level:: Medical - moderate - high VTE Device Contraindication: N/A - Device Ordered VTE Drug Contraindication: N/A - Med Ordered
--- NOTE | 2021-09-28 16:06 | MHC.CM.PN ---
NURSE FIBER HEEL PIECE SHAPER NOTE ELECTRONIC MEDICAL RECORD REVIEWED ALONG WITH CASE DISCUSSEDWITH THE HOSPITLAIST . PATIENT WILLNOT BE DISCHARGED HOME TODAY MAYBE TOMORROW PER HISPITALSIT , DISCHARGE PLAN HOME WITH NO NEW SERVICES dded self resumpiton of his coke oven patcher hours self resumptiomn of his hemo dialysis [facility] dialysis center outpatient at [facility] and resume his m-w-f transport his imm 09/27/21
--- NOTE | 2021-09-28 16:19 | MHC.CM.PN ---
NURSE SECOND WORKER NOTE ELECTRONIC MEDICAL RECORD TEVIEWED PATIWNT TO GO TO ACUTE REHAB CLINICALLY ACCEPTED BY [facility], SPOKE WITH RAOUL AT [facility] AT 4;15 PM STILL NO INSURANCE AUTH RECIVED, CANCELLED ACTION NB FOR 4;30 SPOKE WITH PATIENT WITH FINNISH INTERPERTER EXPLAINING THAT PATIENT WILL NOT BE DISCHARGED TODAY AWAITING INSURANCE AUTHORIZATION. IF DECLINED BY INS, ALTERNATE WOULD BE [facility] , [facility] , ABOUT NO INS AUTH YET , STAFF NURSE AND GEOPHYSICAL PROSPECTOR AND ACTION BY THE NIT BUTT WELDER )
[2021-09-28] MEDS: 0.9 % Sodium Chloride Flush 3 ML SYRINGE IVFLUSH ×2 (18:22→20:55)
[2021-09-28 19:44] VITALS: BP 110/62; PULSE 82; RESP 18; TEMP 37.1; O2SAT 93
[2021-09-28] MEDS: Docusate Sodium 100 MG CAPSULE PO (20:55)
[2021-09-28] MEDS: allopurinoL 100 MG TABLET PO (20:55)
[2021-09-28] MEDS: Labetalol HCL 200 MG TABLET PO (20:55)
[2021-09-28 23:44] VITALS: BP 120/70; PULSE 85; RESP 18; TEMP 36.8; O2SAT 92
[2021-09-29] MEDS: Piperacillin Sodium/Tazobactam 2.25 GM in 0.9 % Sodium Chloride 50 ML IV ×2 (03:00→11:47)
[2021-09-29 03:46] VITALS: BP 115/56; PULSE 71; RESP 17; TEMP 36.5; O2SAT 94
[2021-09-29] MEDS: Heparin Sodium,Porcine 5,000 UNIT/ML VIAL 5000 UNIT SUBCUT (06:04)
[2021-09-29] MEDS: Omeprazole 20 MG CAPSULE.DR PO (06:04)
[2021-09-29 07:56] VITALS: BP 159/72; PULSE 81; RESP 16; TEMP 36.6; O2SAT 95
[2021-09-29] MEDS: Multivitamin TABLET 1 TAB PO (08:14)
[2021-09-29] MEDS: amLODIPine Besylate 5 MG TABLET PO (08:15)
[2021-09-29] MEDS: Docusate Sodium 100 MG CAPSULE PO (08:15)
[2021-09-29] MEDS: allopurinoL 100 MG TABLET PO (08:15)
[2021-09-29] MEDS: Cinacalcet HCl 30 MG TABLET PO (08:15)
[2021-09-29] MEDS: Labetalol HCL 200 MG TABLET PO (08:15)
[2021-09-29] MEDS: Sertraline HCL 100 MG TABLET PO (08:15)
[2021-09-29] MEDS: 0.9 % Sodium Chloride Flush 3 ML SYRINGE IVFLUSH (08:16)
--- NOTE | 2021-09-29 11:10 | W.MHC.F2F ---
Service Date Service Date: 09/29/21 Encounter Date of encounter: 09/29/21 Reasons for Services Signs and symptoms assessed: GI Reason for jail: medication management, medication treatment and teach disease management Reason for physical therapy: home safety and mobility, therapeutic exercises, gait/transfer training, assess need for DME, ADL training and energy conservation MD Overseeing Care: Presley Park Homebound: Leaving the home is medically contraindicated at this time without the asist of a device and/or another person due th the listed conditions above and below. Reason homebound: legally blind Certification: Based on the above findings, I certify that this patient is confined to the home and needs intermittent jail care, physical therapy and/or speech therapy, or continues to need occupational therapy. The patient is under my care, and I have initiated the establishment of the plan of care. The patient will be followed by a physician who will periodically review the plan of care.
--- NOTE | 2021-09-29 11:11 | P.DS_ITS ---
DS: Providers Provider Date of Service: 09/29/21 Date of admission: 09/26/21 17:06 Date of discharge: 09/29/21 Primary care physician: Unknown Physician Consults: 09/26/21 16:01 Consult to General Surgery Routine Consulting Provider: Jose Rafael Alston Reason for consultation: diverticulitis Has provider been notified: No Consult to Nephrology Routine Consulting Provider: Norman Smith Reason for consultation: need for HD Has provider been notified: Yes 09/26/21 16:18 Consult to Gastroenterology Routine Consulting Provider: [facility] Reason for consultation: hepatic lesions, sigmoid diverticulitis DS: Diagnosis Discharge Diagnosis (1) Diverticulitis: Status: Acute (2) Constipation: Status: Acute (3) ESRD (end stage renal disease) on dialysis: Status: Acute (4) Liver cyst: Status: Acute (5) Renal mass: Status: Acute (6) Hyperkalemia: Status: Acute DS: Summary Hospital Course Hospital Course: From my admission H+P, 09/26/21: 86yo legally blind M with ESRD on HD MWF, anemia of CKD, HFpEF, GERD, AAA s/p EVAR, HTN, gout, prostate CA s/p radical prostatectomy, hx GI bleed, hx colonic polyp s/p polypectomy who was just admitted to [facility] 09/10- 09/15/21 for acute diverticulitis with question of possible melena.? He had missed 1 session of dialysis due to nausea and vomiting.? He was discharged on ciprolofloxacin and metronidazole and completed his last doses on 09/16/21.? He developed worsening abdominal pain, nausea, and vomiting without hematemesis the next day.? He again missed HD 09/24 and today.? He has not had a BM on a week.? He has been eating very little.? No fever.? CT scan showed a tortuous sigmoid colon with severe diverticular disease and irregular wall thickening questionabl e for mass versus diverticulitis, with partial secondary obstruction and enlarged pericolic lymph nodes.? He was given Zosyn, Zofran, and morphine. Mr Rojo was admitted to the Medical/Surgical floor. He was treated medically with piperacillin/tazobactam, renally dosed, for 3 days. Gastroenterology was consulted; outpatient sigmoidoscopy or colonoscopy was recommended and he will follow-up with his tag machine operator upon resolution of diverticulitis to schedule this. His symptoms improved, especially with treatment of constipation with senna/docusate and MiraLax. He was discharged home with VNA services on amoxicillin/clavulanate, renally dosed, for 4 more days. Dialysis was done on and Friday. Hyperkalemia resolved after Loklema and dialysis. As for possible liver cyst and right renal cyst vs. mass, outpatient MRI should be arranged by his primary care doctor or his tag machine operator. Time Spent with Patient Time attestation: Total time spent providing and/or coordinating discharge services: Discharge coordination time: Greater than 30 minutes Quality: Stroke Does the patient have a stroke diagnosis?: No Physical Exam Vital Signs: Vital Signs: Last Vital Signs Temp 97.8 F 09/29/21 07:56 Pulse 81 09/29/21 07:56 Resp 16 09/29/21 07:56 BP 159/72 H 09/29/21 07:56 Pulse Ox 95 09/29/21 07:56 BMI result Body Mass Index 20.1 Gen: in no acute distress HEENT: sclera anicteric, moist mucus membranes, legally blind Neck: supple Lungs: clear to auscultation bilaterally Heart: regular rate and rhythm, no murmurs Abd: soft, non-tender Ext: no edema; LUE fistula Skin: warm/well-perfused Neuro: alert and oriented x3, no focal findings Psych: appropriate affect DS: Data Data Completed and Pending Completed studies during hospitalization [Text1]: Laboratory Results WBC 6.4 X10*3/uL (4.8-10.8) 09/28/21 05:38 RBC 2.70 X10*6/uL (4.60-5.80) L 09/28/21 05:38 Hgb 8.7 g/dl (14.0-18.0) L 09/28/21 05:38 Hct 27.9 % (42.0-52.0) L 09/28/21 05:38 MCV 103.3 fL (80.0-98.0) H 09/28/21 05:38 MCH 32.2 pg (27.0-33.0) 09/28/21 05:38 MCHC 31.2 g/dl (31.0-36.0) 09/28/21 05:38 RDW 18.8 % (11.0-16.0) H 09/28/21 05:38 Plt Count 208 X10*3/uL (160-400) 09/28/21 05:38 MPV 9.0 fL (9.4-12.4) L 09/28/21 05:38 Immature Gran % (Auto) 0.5 % (0.0-0.4) H 09/26/21 10:48 Neut % (Auto) 77.4 % (45-73) H 09/26/21 10:48 Lymph % (Auto) 9.6 % (20-40) L 09/26/21 10:48 Kimble % (Auto) 6.8 % (2-11) 09/26/21 10:48 Eos % (Auto) 4.7 % (0-4) H 09/26/21 10:48 Baso % (Auto) 1.0 % (0-2) 09/26/21 10:48 Lymph # (Auto) 0.8 X10*3/uL (1.2-4.9) L 09/26/21 10:48 Kimble # (Auto) 0.5 X10*3/uL (0.1-1.2) 09/26/21 10:48 Eos # (Auto) 0.4 X10*3/uL (0.0-0.4) 09/26/21 10:48 Baso # (Auto) 0.1 X10*3/uL (0.0-0.2) 09/26/21 10:48 Abs Immat Gran (auto) 0.04 X10*3/uL (0.00-0.03) H 09/26/21 10:48 Absolute Neuts (auto) 6.1 x10*3/uL (2.0-8.3) 09/26/21 10:48 Absolute Nucleated RBC 0.000 X10*3/uL (0.0-0.012) 09/28/21 05:38 Nucleated RBC % (auto) 0.0 /100WBC (0.0-0.2) 09/28/21 05:38 PT 13.4 SEC (9.9-13.0) H 09/26/21 10:48 INR 1.2 (0.9-1.1) H 09/26/21 10:48 Sodium 138 mmol/L (135-145) 09/28/21 05:38 Potassium 4.4 mmol/L (3.3-5.1) D 09/28/21 05:38 Chloride 102 mmol/L (96-108) 09/28/21 05:38 Carbon Dioxide 23 mmol/L (22-29) 09/28/21 05:38 Anion Gap 17 (12-20) 09/28/21 05:38 BUN 30 mg/dL (9-16) H D 09/28/21 05:38 Creatinine 5.50 mg/dL (0.5-1.4) H* 09/28/21 05:38 Estim Creat Clear Calc 9.0 09/28/21 05:38 Estimated GFR 10 09/28/21 05:38 Random Glucose 75 mg/dL (60-115) 09/28/21 05:38 Lactic Acid 0.8 mmol/L (0.5-2.0) 09/26/21 10:48 Calcium 8.4 mg/dL (8.4-10.2) 09/28/21 05:38 Magnesium 2.3 mg/dL (1.6-2.6) 09/26/21 10:48 Total Bilirubin 0.8 mg/dL (0.0-1.0) 09/26/21 10:48 Direct Bilirubin 0.4 mg/dL (0.0-0.5) 09/26/21 10:48 AST 13 U/L (5-37) 09/26/21 10:48 ALT 8 U/L (0-40) 09/26/21 10:48 Alkaline Phosphatase 91 U/L (39-117) 09/26/21 10:48 C-Reactive Protein 7.41 mg/dL (< or = 0.50) H 09/28/21 05:38 Total Protein 6.5 g/dL (6.5-8.0) 09/26/21 10:48 Albumin 3.5 g/dL (3.5-5.0) 09/26/21 10:48 Lipase 41 U/L (8-78) 09/26/21 10:48 COVID-19 (SANDOR) Negative (Negative) 09/26/21 10:48 COVID-19 Clin Com See Note 09/26/21 10:48 Impressions Chest X-Ray 09/26/21 11:53 IMPRESSION: Patchy airspace disease bilaterally and left lower lobe airspace disease/pleural effusion Abdomen/Pelvis CT 09/26/21 14:20 IMPRESSION: Abnormal sigmoid colon. The sigmoid colon is tortuous and the course is difficult to follow. There is severe diverticular disease of the colon. There is marked irregular wall thickening of the sigmoid colon questionable for mass versus diverticulitis. There is long segment wall thickening of the more proximal sigmoid and distal left colon and partial secondary obstruction. There are enlarged pericolic lymph nodes. Enlarged liver. Liver cysts. Question area of increased enhancement versus a hypervascular lesion measuring 6 mm in the peripheral right lobe of the liver. Atrophic-appearing kidneys. Bilateral renal cysts. Question complex cyst versus solid renal mass in the lower pole the right kidney. 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 Aortobiiliac stent graft. Saccular left-sided abdominal aortic aneurysm of the mid abdominal aorta measuring 3.5 x 5.5 cm. No comparison exams are available for comparison. Pleural and parenchymal changes at the lung bases, left greater than right. Fleischner guidelines were followed. Discharge Plan Discharge Patient Disposition: Home Health Service Discharge Diagnosis: Diverticulitis, constipation, ESRD on HD, liver cyst, k idney cyst vs. mass Referrals: Fallon Garcia NP [Nurse Practitioner] - 2 Weeks Presley Park MD [Physician] - 1 Week Discharge Medications: New amoxicillin-pot clavulanate 250-125 mg tablet 1 tab PO BID Qty: 8 0RF polyethylene glycol 3350 [Miralax] 17 gram/dose powder 17 g PO DAILY PRN (Reason: constipation) Qty: 510 0RF sennosides-docusate sodium [Senna with Docusate Sodium] 8.6-50 mg tablet 1 tab-cap PO BEDTIME Qty: 60 0RF Continued sertraline [Zoloft] 100 mg Tablet 100 mg PO DAILY 0RF allopurinol 100 mg Tablet 100 mg PO DAILY 0RF pantoprazole [Protonix] 20 mg Tablet,Delayed Release (Dr/Ec) 20 mg PO DAILY 0RF amlodipine [Norvasc] 10 mg Tablet 10 mg PO DAILY 0RF B complex-vitamin C-folic acid 1 mg Tablet 1 tab PO DAILY 0RF labetalol 100 mg Tablet 100 mg PO BID 0RF cinacalcet 30 mg Tablet 30 mg PO BID 0RF white petrolatum-mineral oil 83-15 % Ointment 1 appl ophthalmic-Right BID 0RF Discharge Orders: Discharge Order (Routine); Ordered 09/29/21 Ordered By: Debra Simpson Diet: advance to usual diet Activity on Discharge: As tolerated Stand Alone Forms: Patient Portal Discharge page Care Plan Goals: Recovery from diverticulitis Health Concerns: Diverticulitis, constipation, ESRD on HD, liver cyst, kidney cyst vs. mass Plan of Treatment: Take amoxicillin/clavulanate 250/125 mg twice daily for 4 days For constipation, take senna/docusate twice daily. Add Miralax 1 packet daily if needed for constipation. Continue dialysis Mon/Wed/Fri Follow up with your tag machine operator at [facility] to plan for outpatient sigmoidoscopy/colonoscopy Follow up with your primary care doctor and tag machine operator for further workup of liver cyst and kidney cyst/mass; recommend MRI of the abdomen Assessment: See Discharge Summary Patient Instructions: Diverticulitis (DC)
--- NOTE | 2021-09-29 13:11 | MHC.CM.PN ---
PATIENT IS DC HOME WITH RESUMPTION OF [facility] IN PLACE. RN AWARE OF PLAN.
--- NOTE | 2021-09-29 13:17 | P.PNNP_ITS ---
Subjective Subjective Date of Service: 09/29/21 Interval history: seen and examined had a bowel movement no complaints Physical Exam Vital Signs: Vital Signs: Last Vital Signs Temp 97.8 F 09/29/21 07:56 Pulse 81 09/29/21 07:56 Resp 16 09/29/21 07:56 BP 159/72 H 09/29/21 07:56 Pulse Ox 95 09/29/21 07:56 BMI result Body Mass Index 20.1 Const: General: no acute distress HENMT: Head: Yes normocephalic and Yes atraumatic Neck: Neck: Yes supple Resp: Auscultation: clear to auscultation bilaterally Cardio: Heart sounds: S1 normal heart sound present and S2 normal heart sound present GI: Palpation (GI): Soft to palpation and nontender Extrem: General: No pedal edema Objective Data Labs CBC & Chem 7: 09/28/21 05:38 09/28/21 05:38 Microbiology Microbiology Results: Microbiology 09/26/21 10:48 Blood - Venous Blood Culture - Preliminary No growth after 48 hours. 09/26/21 10:48 Blood - Venous Blood Culture - Preliminary No growth after 48 hours. Procedures Date of Service Date of Service: 09/29/21 Assessment & Plan Assessment and plan (1) ESRD (end stage renal disease) on dialysis: Status: Acute (2) Diverticulitis: Status: Acute (3) Anemia: Status: Acute Plan known ESRD has HD m-w- at [facility] dialysis unit multiple admission with diverticulitis h/o HFpEF REC HD on Friday renal diet KATY per protocol phosphate binders Time Spent With Patient Time: Total time spent is greater than 50% in coordination of care (as documented) at patient's floor/unit and/or counseling patient: Progress Note: Quality Stroke Does the patient have a stroke diagnosis?: No
== END 2021-09-29 13:20 | disposition home health service (06) | DRG 391 ==
LOC: HO.ED 15:27 → HO.EDOVER 17:13 → HO.S3 18:46
PROVIDERS: Admitting Provider Family Medicine; Emergency Provider Emergency Medicine; Visit Provider Family Medicine
DX: K57.32 Diverticulitis of large intestine without perforation or abscess without bleeding (principal); I13.2 Hypertensive heart and chronic kidney disease with heart failure and with stage 5 chronic kidney disease, or end stage renal disease; N18.6 End stage renal disease; I50.32 Chronic diastolic (congestive) heart failure; H54.8 Legal blindness, as defined in USA; D63.1 Anemia in chronic kidney disease; M10.9 Gout, unspecified; E87.5 Hyperkalemia; K59.00 Constipation, unspecified; K76.89 Other specified diseases of liver; E11.22 Type 2 diabetes mellitus with diabetic chronic kidney disease; Z91.19 Patient's noncompliance with other medical treatment and regimen; Z99.2 Dependence on renal dialysis; Z20.822 Contact with and (suspected) exposure to COVID-19; Z87.891 Personal history of nicotine dependence; Z88.5 Allergy status to narcotic agent; Z88.6 Allergy status to analgesic agent; Z79.899 Other long term (current) drug therapy
CPT/HCPCS: 36415; 71045; 74177; 80048; 80076; 83605; 83690; 83735; 85025; 85027; 85610; 86140; 87040; 87635; 90999; 93005; 96365; 96367; 96375; 99285; J0885; J2270; J2405; J2543; Q9967

== ENCOUNTER 2021-10-07 15:24 | Inpatient (IN) | payer OTHER, MEDICARE, SELFPAY ==
--- NOTE | ~2021-10-07 | CT_ITS ---
EXAMINATION: CT ABDOMEN AND PELVIS WITH CONTRAST CLINICAL INFORMATION: Abdominal pain and vomiting. History of diverticulitis. COMPARISON: 09/26/2021 TECHNIQUE: Multidetector volumetric images were obtained from the superior aspect of the liver through the pubic symphysis following administration 100 mL of Omnipaque 350 intravenous contrast. Sagittal and coronal reformatted images were obtained on the technologist's workstation. Oral contrast: No This CT examination was performed using dose optimization techniques as appropriate, variously including the following: *Automated exposure control *Adjustment of mA and/or kV according to patient size (this includes techniques or standardized protocols for targeted exams where dose is matched to indication/reason for exam; i.e. extremities or head) *Use of iterative reconstruction technique DLP: 401 mGy-cm FINDINGS: LUNG BASES: Cardiomegaly. No pericardial effusion. Mitral valve annulus is calcified. There are aortic valve calcifications. Calcific atherosclerosis of visualized coronary arteries and of the tortuous descending thoracic aorta. Small loculated bilateral pleural effusions and pleural-based calcifications. Consider possibility of remote asbestos exposure. Architectural distortion and scattered peripheral opacities of atelectasis or scarring in the bases. There is rounded configuration of atelectasis of left lower lobe and lingula. Moderate emphysematous changes of the visualized bases. LIVER: Multiple simple cysts within the liver. No acute liver pathology. There are arterial vascular calcifications of the liver. GALLBLADDER AND BILIARY TREE: Gallbladder is moderately distended and has calcified stones. No gallbladder wall thickening. No dilated bile ducts. PANCREAS: Normal. No edema, pancreatic ductal dilatation or mass. SPLEEN: Normal. ADRENAL GLANDS: Normal. KIDNEYS AND URETERS: Severe cortical atrophy of both kidneys. Simple cysts of the left kidney. 1.9 cm lesion at the lower pole of the right kidney has attenuation of 48 HU. This is an indeterminate lesion. It could represent a contrast-enhancing mass or proteinaceous cyst. Also, there is lobulated cortex of the lateral right lower pole, at which point the cortex is thicker than in other areas of the kidney, further raising suspicion for renal neoplasm in the lateral right lower pole. No nephrolithiasis or hydroureteronephrosis. The renal arteries are densely calcified. At the right renal hilum, the calcified renal artery is dilated to 0.8 cm AP diameter. BLADDER: The urinary bladder is empty, poorly evaluated. BOWEL AND PERITONEUM: Prior right hemicolectomy. The rectum is distended with fluid and measures up to 7.2 cm traverse diameter. No rectal wall thickening or perirectal inflammatory change. Again noted is a tortuous, thick-walled sigmoid colon which has multiple diverticula and there is mild edema in sigmoid mesentery. There is heterogeneous enhancement of the thickened sigmoid wall, and there is focal extension of inflammatory or neoplastic tissue from the signal wall into the mesentery (images 62-64, series 3). Proximal to the sigmoid, the colon has become more distended with fluid. The transverse colon, which has air-fluid level, measures up to 7 cm AP diameter. No wall thickening at the enterocolonic anastomosis. The loops of small bowel have become more distended with fluid, as well. In the right abdomen, small bowel is distended up to nearly 4 cm diameter. Small hiatal hernia of the stomach. Small amount of free fluid is present in the abdomen. No pneumoperitoneum. ABDOMINAL WALL: No acute findings compared to 09/26/2021. VASCULATURE: Atherosclerotic disease of the aorta and iliofemoral vessels with aortobiiliac stent graft in place. 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 LYMPH NODES: No pathologic sized lymph nodes. PELVIC VISCERA: Prostate gland is not well seen, likely surgically absent. SKELETAL: Multilevel degenerative disc disease of the visualized thoracolumbar spine. Mild degenerative retrolisthesis at L2-L3. Mild osteoarthritis and chondrocalcinosis of the hips. CT/CT abdomen pelvis w con IMPRESSION: * Findings suggestive of severe diverticular disease of the sigmoid colon. Also, findings are suspicious for superimposed sigmoid neoplasm due to presence of heterogeneously enhancing tissue of the sigmoid wall and infiltration of enhancing tissue into the sigmoid mesentery. Interval development of bowel obstruction proximal to the thick-walled sigmoid. Small volume of abdominal free fluid is present. No pneumoperitoneum. * Cholelithiasis without cholecystitis. * Atherosclerotic disease of peripheral vessels and aortobiiliac stent graft in place. 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 * Old loculated bilateral pleural effusions, bibasilar opacities from atelectasis and/or fibrosis, and emphysematous disease in the visualized bases. * Again noted is abnormal lobulation of the lower pole of the right kidney which has a 1.9 cm proteinaceous cyst or enhancing tumor. In addition, there are two other areas of cortical lobulation or enhancing neoplasms at the right lower pole.
--- NOTE | ~2021-10-07 | XR_ITS ---
EXAMINATION: XR CHEST CLINICAL INFORMATION: 56-year-old male with hypoxia. COMPARISON: 09/26/2019 TECHNIQUE: Frontal view of the chest was obtained. FINDINGS: When compared to the previous study, the degree of patchiness in both lungs diminished. There is still scattered patchy airspace disease most likely atypical pneumonia. Calcified plaques seen bibasilar. The mediastinal silhouette is normal. There is left subclavian/axillary stent. XR/XR chest 1V IMPRESSION: Residual patchiness in both lungs. Pleural-based calcifications.
[2021-10-07 15:31] VITALS: BP 170/90; BP 185/92; PULSE 82; PULSE 84; RESP 20; TEMP 36.4; O2SAT 94; O2SAT 97; BMI 18.6
--- NOTE | 2021-10-07 15:44 | PC.NURSE ---
LAVF, +bruit/thrill. dialysis MWF, last session on Friday Reports mild SOB, sat 91% on room air, placed on 2lpm via nc, sat up to 98%
--- NOTE | 2021-10-07 15:45 | PHA.MEDREC ---
Pharmacy Consult ? Medication Reconciliation Pharmacy has completed the medication reconciliation.
--- NOTE | 2021-10-07 15:47 | ED_ITS ---
HPI - Abdominal Pain General Chief Complaint: Abdominal Pain Stated Complaint: abd pain w/vomiting Time Seen by Provider: 10/07/21 15:38 Source: patient and EMS Mode of arrival: EMS Limitations: no limitations History of Present Illness HPI narrative: 86 y/o male with history of ESRD on dialysis M/W/F, HFpEF, HTN, AAA s/p repair, prostate cancer s/p radical prostatectomy, history of GI bleed, history of colonic polyps status post open polypectomy in the past & history of recurrent diverticulitis with recent admission here 09/26 - 09/29 who presents back to the ER with worsening lower abdominal pain for the last few days. He ate chicken livers last night to get his blood counts up and shortly after had a few episodes of vomiting. He has had intermittent waves of severe lower abdominal pain since with nausea. 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 He denies any fever or chills. He last got HD on Friday and had a full 3 hour session. Denies SOB or difficulty breathing. He completed a course of PO antibiotics on 10/03 he thinks. He reports the pain never fully went away after discharge. MD elicited complaint: abdominal pain Pertinent past history: constipation and diverticulitis Onset (ago): day(s) Pain Consistency: intermittent Location: RLQ and LLQ Severity: severe Pain scale (0-10): 10 Quality: stabbing Radiation: none Migration to: no migration Exacerbating factors: nothing Relieving factors: nothing Context: recent antibiotic use and history of similar episodes Associated symptoms: nausea, vomiting and diarrhea Related Data Home Medications Medication Instructions Recorded Confirmed allopurinol 100 mg tablet 100 mg PO DAILY 09/26/21 10/07/21 amlodipine 10 mg tablet (Norvasc) 10 mg PO DAILY 09/26/21 10/07/21 cinacalcet 30 mg tablet 30 mg PO BID 09/26/21 10/07/21 labetalol 100 mg tablet 100 mg PO BID 09/26/21 10/07/21 pantoprazole 20 mg tablet,delayed 20 mg PO DAILY 09/26/21 10/07/21 release (Protonix) sertraline 100 mg tablet (Zoloft) 100 mg PO DAILY 09/26/21 10/07/21 vitamin B complex-vitamin C-folic 1 tab PO DAILY 09/26/21 10/07/21 acid 1 mg tablet white petrolatum-mineral oil 83 1 appl OPHTHALMIC-RIGHT BID 09/26/21 10/07/21 %-15 % eye ointment Previous Rx's Medication Instructions Recorded amoxicillin 250 mg-potassium 1 tab PO BID #8 tab 09/29/21 clavulanate 125 mg tablet polyethylene glycol 3350 17 17 g PO DAILY PRN #510 g 09/29/21 gram/dose oral powder (Miralax) sennosides 8.6 mg-docusate sodium 1 tab-cap PO BEDTIME #60 tab 09/29/21 50 mg tablet (Senna with Docusate Sodium) Allergies Allergy/AdvReac Type Severity Reaction Status Date / Time oxycodone Allergy Hallucinati Verified 09/26/21 10:14 ons aspirin AdvReac Stomach Verified 09/26/21 10:14 Upset sevelamer [From Renvela] AdvReac Stomach Verified 09/26/21 10:14 Upset [id number] Reductase AdvReac Stomach Verified 09/26/21 10:14 Inhibitor Upset Review of Systems Review of Systems Constitutional: No Fever, No Chills ENT/Mouth: No sore throat, No Rhinorrhea, No Swallowing Difficulty Eyes: No Eye Pain, No Swelling, No Redness, +blindness in right eye Cardiovascular: No Chest Pain, No SOB, No Orthopnea, No Edema Respiratory: No Cough, No Sputum, No Wheezing, No dyspnea Gastrointestinal: + Nausea, + Vomiting, + Diarrhea, + abdominal Pain, No Hematochezia, No Melena Genitourinary: No Dysuria, No Urinary Frequency, No Hematuria Musculoskeletal: No joint pain, No Myalgias Skin: No Skin Lesions, No rash Neuro: +Weakness, No Numbness, No Dizziness, No Headache Psych: No Anxiety/Panic, No Depression Heme/Lymph: No Bruising, No Lymphadenopathy Endocrine: No Polyuria, No Polydipsia PMFSH Past Medical History Medical History (HFpEF) heart failure with preserved ejection fraction AAA (abdominal aortic aneurysm) Anemia in ESRD (end-stage renal disease) Colonic polyp CRF (chronic renal failure) Depression Diverticulosis GERD (gastroesophageal reflux disease) Gout History of prostate cancer HTN (hypertension) Surgical History H/O colectomy H/O prostatectomy History of colonoscopy with polypectomy S/P AAA repair Social History Social History Household Members: Spouse Do you presently have visiting nurse or other home services: No Alcohol intake: never Patient Tobacco Use Status: Former Tobacco user Use of substances other than those prescribed or required for medical reasons: Yes Substance Use Type: Marijuana Advance Directives: Yes Advance Directives on File: Yes Advance Directives Date on File: 09/26/21 service: Yes Current occupational status: retired Physical Exam ED Vital Signs: Vital Signs - 24 hr 10/07/21 15:31 10/07/21 16:49 Temperature 97.5 F Pulse Rate 82 90 Respiratory Rate 20 16 Blood Pressure 185/92 H 156/83 H Pulse Oximetry 94 100 BMI result Body Mass Index 18.6 Appearance: Alert elderly male sitting up in bed, frail appearingOriented X3. Appears uncomfortable. Eyes: Pupils equal, round and reactive to light. ENT: Pharynx normal. Neck: Normal inspection. Neck supple. CVS: Normal heart rate and rhythm. Pulses normal. +systolic murmur 3/6 best heard at LSB Respiratory: No respiratory distress. Breath sounds normal. Abdomen: Well-healed longitudinal surgical scar in the middle abdomen. Guarded and slightly tense with tenderness of the lower abdomen bilaterally. +BS x4 Skin: Skin warm and dry. Normal skin color. skin turgor poor. No rashes. Extremities: No lower extremity edema. Neuro: Oriented X 3. No motor deficit. No sensory deficit. Course Course Course Narrative: 86-year-old male with a history of recently diagnosed and treated sigmoid diverticulitis presents back to the ER with worsening lower abdominal pain, nausea, vomiting and diarrhea that started last night. He completed oral antibiotics last week. He appears uncomfortable on arrival. He was found to be 90% on room air, placed on 2 L nasal cannula with improvement to 98%. He denies any shortness of breath or chest pain. Concern for possible recurrent diverticulitis, possible perforation or abscess. Repeat CT scan with contrast is ordered for further evaluation. Old scan 09/26 reviewed and had significant abnormalities - torturous sigmoid colon with severe diverticular disease, marked irregular wall thickening of the sigmoid colon questionable for mass versus diverticulitis, thickening of the proximal sigmoid and distal left colon and partial secondary obstruction. There was concern for a possible sigmoid neoplasm however when seen by GI this was thought to be less likely history of multiple colonoscopies. Okay to get CT with contrast today, he is due for HD tomorrow. Anticipate admission. Reevaluation(s) Reevaluation #1: Labs without leukocytosis. His anemia is at baseline. No hyperkalemia. BNP 2500, which can be seen in renal failure. Although he does have some mild hypoxia and concern for pulmonary edema/CHF. Chest x-rays showing improved patchy airspace disease scattered throughout the lungs, likely atypical pneumonia. He also has calcified plaque seen at the bases. Reevaluation #2: CT scan is showing severe diverticular disease of the sigmoid colon. Suspicious findings of superimposed sigmoid neoplasm with enhancing tissue of the sigmoid while an infiltration of the enhancing tissue into the sigmoid mesentery. He also has development of a bowel obstruction proximal to the thick-walled sigmoid. Small volume of free fluid present in the abdomen. IV zosyn ordered, renally dosed for HD. pain is controlled after a dose of IV fentanyl. He has no nausea at this time. No vomiting witnessed in the ED. Will hold off on NG tube given obstruction is distal. Will discuss admission with surgeon. Reevaluation #3: Dr. Lau will admit. CT results and plan for admission discussed with patient who is in agreement. 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 Consultations Consultation #1: General Surgery - Dr. Tipton MDM - Abdominal Pain Medical Records Attestation: I reviewed the patient's medical records. Lab Data Attestation: I reviewed the patient's lab results. Result diagrams: 10/07/21 16:06 10/07/21 16:06 Labs: Lab Results 10/07/21 10/07/21 10/07/21 Range/Units 16:05 16:05 16:06 WBC 9.8 (4.8-10.8) X10*3/uL RBC 3.52 L D (4.60-5.80) X10*6/uL Hgb 11.3 L D (14.0-18.0) g/dl Hct 36.7 L D (42.0-52.0) % MCV 104.3 H (80.0-98.0) fL MCH 32.1 (27.0-33.0) pg MCHC 30.8 L (31.0-36.0) g/dl RDW 17.8 H (11.0-16.0) % Plt Count 302 D (160-400) X10*3/uL MPV 8.8 L (9.4-12.4) fL Immature Gran % (Auto) 0.6 H (0.0-0.4) % Neut % (Auto) 82.7 H (45-73) % Lymph % (Auto) 7.7 L (20-40) % [place] % (Auto) 6.3 (2-11) % Eos % (Auto) 1.9 (0-4) % Baso % (Auto) 0.8 (0-2) % Lymph # (Auto) 0.8 L (1.2-4.9) X10*3/uL [place] # (Auto) 0.6 (0.1-1.2) X10*3/uL Eos # (Auto) 0.2 (0.0-0.4) X10*3/uL Baso # (Auto) 0.1 (0.0-0.2) X10*3/uL Abs Immat Gran (auto) 0.06 H (0.00-0.03) X10*3/uL Absolute Neuts (auto) 8.1 (2.0-8.3) x10*3/uL Absolute Nucleated RBC 0.000 (0.0-0.012) X10*3/uL Nucleated RBC % (auto) 0.0 (0.0-0.2) /100WBC Sodium (135-145) mmol/L Potassium (3.3-5.1) mmol/L Chloride (96-108) mmol/L Carbon Dioxide (22-29) mmol/L Anion Gap (12-20) BUN (9-16) mg/dL Creatinine (0.5-1.4) mg/dL Estim Creat Clear Calc Estimated GFR Random Glucose (60-115) mg/dL Calcium (8.4-10.2) mg/dL Magnesium (1.6-2.6) mg/dL Total Bilirubin (0.0-1.0) mg/dL Direct Bilirubin (0.0-0.5) mg/dL AST (5-37) U/L ALT (0-40) U/L Alkaline Phosphatase (39-117) U/L B-Natriuretic Peptide 2562 H (<100) pg/mL Total Protein (6.5-8.0) g/dL Albumin (3.5-5.0) g/dL Lipase (8-78) U/L COVID-19 ([facility]) Negative (Negative) COVID-19 Clin Com See Note 10/07/21 Range/Units 16:06 WBC (4.8-10.8) X10*3/uL RBC (4.60-5.80) X10*6/uL Hgb (14.0-18.0) g/dl Hct (42.0-52.0) % MCV (80.0-98.0) fL MCH (27.0-33.0) pg MCHC (31.0-36.0) g/dl RDW (11.0-16.0) % Plt Count (160-400) X10*3/uL MPV (9.4-12.4) fL Immature Gran % (Auto) (0.0-0.4) % Neut % (Auto) (45-73) % Lymph % (Auto) (20-40) % [place] % (Auto) (2-11) % Eos % (Auto) (0-4) % Baso % (Auto) (0-2) % Lymph # (Auto) (1.2-4.9) X10*3/uL [place] # (Auto) (0.1-1.2) X10*3/uL Eos # (Auto) (0.0-0.4) X10*3/uL Baso # (Auto) (0.0-0.2) X10*3/uL Abs Immat Gran (auto) (0.00-0.03) X10*3/uL Absolute Neuts (auto) (2.0-8.3) x10*3/uL Absolute Nucleated RBC (0.0-0.012) X10*3/uL Nucleated RBC % (auto) (0.0-0.2) /100WBC Sodium 144 (135-145) mmol/L Potassium 5.0 (3.3-5.1) mmol/L Chloride 104 (96-108) mmol/L Carbon Dioxide 25 (22-29) mmol/L Anion Gap 20 (12-20) BUN 37 H (9-16) mg/dL Creatinine 6.19 H* (0.5-1.4) mg/dL Estim Creat Clear Calc 7.4 Estimated GFR 9 Random Glucose 85 (60-115) mg/dL Calcium 9.6 D (8.4-10.2) mg/dL Magnesium 2.2 (1.6-2.6) mg/dL Total Bilirubin 0.8 (0.0-1.0) mg/dL Direct Bilirubin 0.4 (0.0-0.5) mg/dL AST 16 (5-37) U/L ALT 9 (0-40) U/L Alkaline Phosphatase 102 (39-117) U/L B-Natriuretic Peptide (<100) pg/mL Total Protein 6.7 (6.5-8.0) g/dL Albumin 3.7 (3.5-5.0) g/dL Lipase 20 (8-78) U/L COVID-19 ([facility]) (Negative) COVID-19 Clin Com Critical Care Time Critical Care Time Critical Care Time: Yes Total Critical Care Time: 44 Attestation: I have personally provided critical care time exclusive of time spent on sep arately billable procedures. Time includes review of lab data, radiology results, discussion with consultants, and monitoring for potential decompensation. Intervention performed as documented. Discharge Plan Discharge Clinical Impression: Sigmoid diverticulitis, Bowel obstruction Patient Disposition: Admitted As Inpatient
[2021-10-07 16:11] LABS: MANUAL DIFF FLAG NO
[2021-10-07 16:19] LABS: Basophils Absolute Auto 0.1 X10*3/uL (0.0-0.2); Basophils Percent Auto 0.8 % (0-2); Eosinophils Absolute Auto 0.2 X10*3/uL (0.0-0.4); Eosinophils Percent Auto 1.9 % (0-4); Hematocrit 36.7 % (42.0-52.0); Hemoglobin 11.3 g/dl (14.0-18.0); Imm Gran Abs Auto 0.06 X10*3/uL (0.00-0.03); Imm Gran Pct Auto 0.6 % (0.0-0.4); Lymphocytes Absolute Auto 0.8 X10*3/uL (1.2-4.9); Lymphocytes Percent Auto 7.7 % (20-40); Mean Corpuscular HGB Conc 30.8 g/dl (31.0-36.0); Mean Corpuscular Hemoglobin 32.1 pg (27.0-33.0); Mean Corpuscular Volume 104.3 fL (80.0-98.0); Mean Platelet Volume 8.8 fL (9.4-12.4); Monocytes Absolute Auto 0.6 X10*3/uL (0.1-1.2); Monocytes Percent Auto 6.3 % (2-11); Neutrophils Absolute Auto 8.1 x10*3/uL (2.0-8.3); Neutrophils Percent Auto 82.7 % (45-73); Platelet Count 302 X10*3/uL (160-400); Red Blood Count 3.52 X10*6/uL (4.60-5.80); Red Cell Distribution Width 17.8 % (11.0-16.0); White Blood Count 9.8 X10*3/uL (4.8-10.8)
[2021-10-07 16:28] LABS: COVID-19 Test Negative (Negative); IDNOW Serial# 16C4AD1C
[2021-10-07 16:41] LABS: Alanine Aminotransferase 9 U/L (0-40); Albumin Level 3.7 g/dL (3.5-5.0); Alkaline Phosphatase 102 U/L (39-117); Anion Gap 20 (12-20); Aspartate Amino Transferase 16 U/L (5-37); Bilirubin Direct 0.4 mg/dL (0.0-0.5); Bilirubin Total 0.8 mg/dL (0.0-1.0); Blood Urea Nitrogen 37 mg/dL (9-16); Calcium 9.6 mg/dL (8.4-10.2); Carbon Dioxide 25 mmol/L (22-29); Chloride 104 mmol/L (96-108); Creatinine Clr Calc Pharmacy 7.4; Estimated Glomerular Filt Rate 9; Glucose Random 85 mg/dL (60-115); Lipase 20 U/L (8-78); Magnesium 2.2 mg/dL (1.6-2.6); Sodium 144 mmol/L (135-145); Total Protein 6.7 g/dL (6.5-8.0)
[2021-10-07 16:44] LABS: B Type Natriuretic Peptide 2562 pg/mL (<100)
[2021-10-07] MEDS: fentaNYL citrate/PF 100 MCG/2 ML VIAL 50 MCG IVPUSH (16:48)
[2021-10-07 16:49] VITALS: BP 156/83; PULSE 90; RESP 16; O2SAT 100
[2021-10-07 18:18] LABS: Lactic Acid 0.6 mmol/L (0.5-2.0)
[2021-10-07] MEDS: Piperacillin Sodium/Tazobactam 2.25 GM in 0.9 % Sodium Chloride 50 ML IV (18:25)
[2021-10-07 19:20] VITALS: BP 161/89; PULSE 90; RESP 18; O2SAT 98
[2021-10-07] MEDS: Labetalol HCL 100 MG TABLET PO (22:04)
[2021-10-07] MEDS: 0.9 % Sodium Chloride Flush 3 ML SYRINGE IVFLUSH (22:04)
[2021-10-07] MEDS: Morphine Sulfate 4 MG/ML CARTRIDGE IVPUSH (22:39)
[2021-10-07] MEDS: ondansetron HCL 4 MG/2 ML VIAL IVPUSH (22:50)
--- NOTE | 2021-10-07 23:45 | PM.HPGS ---
History of Present Illness History of Present Illness Date of Service: 10/07/21 Chief complaint: Obstruction Narrative: Farrukh Rojo is a 86 year old male who was recently dc home with po antibx for diverticulitis - it hasnt been working well and he comes in with n/v and abdo pain . he says he has been passing gas and had a BM here in the ER. He says that he had a colonoscopy recently at [facility] but not sure if gi doc could get all the way through because of scar tissue. CT scans 2 weeks ago and today show descending colon tics and twisting. todays scan now shows worsening obstruction now with small bowel dilatation. pt is on dialysis, has multiple complaints with arthritis. sadened as he feels body is failing him and not sure how far he wants to go. still agrees to dialysis tomorrow. Review of Systems Constitutional: Constitutional: Reports as per [facility] Past Medical History Medical History (HFpEF) heart failure with preserved ejection fraction AAA (abdominal aortic aneurysm) Abdominal pain Anemia Anemia in ESRD (end-stage renal disease) CKD (chronic kidney disease) Colonic polyp CRF (chronic renal failure) Depression Diverticulitis Diverticulosis ESRD (end stage renal disease) on dialysis GERD (gastroesophageal reflux disease) Gout History of prostate cancer HTN (hypertension) Surgical History Surgical History H/O colectomy H/O prostatectomy History of colonoscopy with polypectomy S/P AAA repair Social History Social History Household Members: Spouse Do you presently have visiting nurse or other home services: No Alcohol intake: never Patient Tobacco Use Status: Former Tobacco user Use of substances other than those prescribed or required for medical reasons: Yes Substance Use Type: Marijuana Advance Directives: Yes Advance Directives on File: Yes Advance Directives Date on File: 09/26/21 service: Yes Current occupational status: retired Meds Allergies Allergy/AdvReac Type Severity Reaction Status Date / Time oxycodone Allergy Hallucinati Verified 09/26/21 10:14 ons aspirin AdvReac Stomach Verified 09/26/21 10:14 Upset sevelamer [From Renvela] AdvReac Stomach Verified 09/26/21 10:14 Upset [id number] Reductase AdvReac Stomach Verified 09/26/21 10:14 Inhibitor Upset Active Medications: Current Medications Allopurinol (Allopurinol 100 Mg Tablet) 100 mg PO DAILY [facility] Amlodipine Besylate (Amlodipine Besylate 10 Mg Tablet) 10 mg PO DAILY ALEJANDRO; Protocol Piperacillin Sod/Tazobactam (Sod 2.25 gm/ Sodium Chloride) 50 mls @ 100 mls/hr IV Q8H ALEJANDRO Labetalol HCl (Labetalol Hcl 100 Mg Tablet) 100 mg PO BID ALEJANDRO; Protocol Last Admin: 10/07/21 22:04 Dose: 100 mg Documented by: Morphine Sulfate (Morphine Sulfate 4 Mg/Ml Cartridge) 4 mg IVPUSH Q3H PRN; Protocol PRN Reason: Pain, Severe (Pain Scale 7-10) Last Admin: 10/07/21 22:39 Dose: 4 mg Documented by: Pharmacy Consult (Consult Rx Perform Med Rec) 1 each MISCELLANE ONCE PRN PRN Reason: Consult order Sertraline HCl (Sertraline Hcl 100 Mg Tablet) 100 mg PO DAILY [facility] Sodium Chloride (0.9 % Sodium Chloride Flush 3 Ml Syringe) 3 ml IVFLUSH QSHIFT [facility] Last Admin: 10/07/21 22:04 Dose: 3 ml Documented by: Home Medications Medication Instructions Recorded Confirmed Last Taken Type allopurinol 100 mg tablet 100 mg PO DAILY 09/26/21 10/07/21 Unknown History amlodipine 10 mg tablet (Norvasc) 10 mg PO DAILY 09/26/21 10/07/21 Unknown History cinacalcet 30 mg tablet 30 mg PO BID 09/26/21 10/07/21 Unknown History labetalol 100 mg tablet 100 mg PO BID 09/26/21 10/07/21 Unknown History pantoprazole 20 mg tablet,delayed 20 mg PO DAILY 09/26/21 10/07/21 Unknown History release (Protonix) sertraline 100 mg tablet (Zoloft) 100 mg PO DAILY 09/26/21 10/07/21 Unknown History vitamin B complex-vitamin C-folic 1 tab PO DAILY 09/26/21 10/07/21 Unknown History acid 1 mg tablet white petrolatum-mineral oil 83 1 appl OPHTHALMIC-RIGHT BID 09/26/21 10/07/21 Unknown History %-15 % eye ointment Physical Exam Vital Signs: Vital Signs: Last Vital Signs Temp 97.5 F 10/07/21 15:31 Pulse 90 10/07/21 19:20 Resp 18 10/07/21 19:20 BP 161/89 H 10/07/21 19:20 Pulse Ox 98 10/07/21 19:20 BMI result Body Mass Index 18.6 Const: General: cooperative, alert, awake, lethargic and tired appearing Nutritional Appearance: underweight Orientation/consciousness: lethargic Resp: Auscultation: clear to auscultation bilaterally Cardio: Rhythm: regular rhythm Heart sounds: Murmur heart sound present GI: Other: abdo soft distended mild tenderness diffusely hypo bowel sounds midline scar Results Results Labs: Short CBC 10/07/21 Range/Units 16:06 WBC 9.8 (4.8-10.8) X10*3/uL Hgb 11.3 L D (14.0-18.0) g/dl Hct 36.7 L D (42.0-52.0) % Plt Count 302 D (160-400) X10*3/uL BMP 10/07/21 16:06 Sodium 144 Potassium 5.0 Chloride 104 Carbon Dioxide 25 BUN 37 H Creatinine 6.19 H* Calcium 9.6 D Liver Function 10/07/21 Range/Units 16:06 Total Bilirubin 0.8 (0.0-1.0) mg/dL Direct Bilirubin 0.4 (0.0-0.5) mg/dL AST 16 (5-37) U/L ALT 9 (0-40) U/L Alkaline Phosphatase 102 (39-117) U/L Albumin 3.7 (3.5-5.0) g/dL Abdomen CT scan report/results: report reviewed and image reviewed CT scan - pelvis: report reviewed and image reviewed Assessment and Plan (1) Sigmoid diverticulitis: Status: Acute (2) Bowel obstruction: Status: Acute Plan 86 year old male with multiple med issues with known sig tics, prob not malignancy, with probable stricture now causing obstruction and small bowel dilatation. pt most likely needs surgery to remove stenosed colon or at least diverting loop colostomy. he already has had remote right colectomy. however he has multiple med issues and not jennifer he would survive and do well with even a diversion. he realizes this and not sure how much he wants to pursue things. he understands his body is frail and he is tired. 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 i do think surgery would be higher risk on him and his baseline is already poor. admit - ivf, npo, iv zosyn, hold on ngtube - hasnt vomited here not nauseated now and stomach not distended on ct scan med consult for dialysis tomorrow Quality Stroke Does the patient have a stroke diagnosis?: No VTE Prior VTE?: No VTE Risk Level:: Surgical - moderate VTE Device Contraindication: N/A - Device Ordered VTE Drug Contraindication: N/A - Med Ordered Procedures Date of Service Date of Service: 10/07/21
[2021-10-08] VITALS (7 sets, daily range): BP systolic 94–138; BP diastolic 50–78; PULSE 79–89; RESP 16–20; TEMP 36.1–36.4; O2SAT 90–100
[2021-10-08] MEDS: 0.9 % Sodium Chloride 500 ML 50 ML IV (00:45)
[2021-10-08] MEDS: Piperacillin Sodium/Tazobactam 2.25 GM in 0.9 % Sodium Chloride 50 ML IV ×3 (01:35→18:14)
[2021-10-08] MEDS: Morphine Sulfate 4 MG/ML CARTRIDGE IVPUSH ×5 (01:35→23:12)
[2021-10-08 04:58] LABS: MANUAL DIFF FLAG NO
[2021-10-08 05:05] LABS: Basophils Absolute Auto 0.1 X10*3/uL (0.0-0.2); Basophils Percent Auto 0.7 % (0-2); Eosinophils Absolute Auto 0.2 X10*3/uL (0.0-0.4); Eosinophils Percent Auto 1.3 % (0-4); Hematocrit 35.2 % (42.0-52.0); Hemoglobin 10.9 g/dl (14.0-18.0); Imm Gran Abs Auto 0.06 X10*3/uL (0.00-0.03); Imm Gran Pct Auto 0.5 % (0.0-0.4); Lymphocytes Absolute Auto 0.7 X10*3/uL (1.2-4.9); Lymphocytes Percent Auto 6.6 % (20-40); Mean Corpuscular Hemoglobin 32.5 pg (27.0-33.0); Mean Corpuscular Volume 105.1 fL (80.0-98.0); Mean Platelet Volume 8.9 fL (9.4-12.4); Monocytes Absolute Auto 0.7 X10*3/uL (0.1-1.2); Monocytes Percent Auto 6.3 % (2-11); Neutrophils Absolute Auto 9.5 x10*3/uL (2.0-8.3); Neutrophils Percent Auto 84.6 % (45-73); Platelet Count 301 X10*3/uL (160-400); Red Blood Count 3.35 X10*6/uL (4.60-5.80); Red Cell Distribution Width 17.7 % (11.0-16.0); White Blood Count 11.2 X10*3/uL (4.8-10.8)
[2021-10-08 05:23] LABS: Anion Gap 19 (12-20); Blood Urea Nitrogen 41 mg/dL (9-16); Calcium 8.5 mg/dL (8.4-10.2); Carbon Dioxide 24 mmol/L (22-29); Chloride 107 mmol/L (96-108); Creatinine Clr Calc Pharmacy 7.4; Estimated Glomerular Filt Rate 9; Glucose Random 65 mg/dL (60-115); Sodium 145 mmol/L (135-145)
--- NOTE | 2021-10-08 07:56 | P.PNGS_ITS ---
Subjective Subjective Date of Service: 10/08/21 Interval history: describes periodic waves of crampy pain says he had BMs yesterday, flatus last night Physical Exam Vital Signs: Vital Signs: Last Vital Signs Temp 97.6 F 10/08/21 04:00 Pulse 83 10/08/21 04:00 Resp 16 10/08/21 04:00 BP 138/78 10/08/21 04:00 Pulse Ox 100 10/08/21 04:00 BMI result Body Mass Index 18.6 Const: Other: looks frail Resp: Effort & Inspection: normal respiratory effort Cardio: Rate: regular rate GI: Other: distended but soft, no guarding or rebound Palpation (GI): Soft to palpation Objective Data Active Medications Allopurinol (Allopurinol 100 Mg Tablet) 100 mg PO DAILY [facility] Amlodipine Besylate (Amlodipine Besylate 10 Mg Tablet) 10 mg PO DAILY [facility]; Protocol Piperacillin Sod/Tazobactam (Sod 2.25 gm/ Sodium Chloride) 50 mls @ 100 mls/hr IV Q8H [facility] Last Infusion: 10/08/21 02:47 Dose: 0 mls/hr Documented by: CHANDLER Sodium Chloride (Ns) 500 mls @ 50 mls/hr IV .Q10H [facility] Stop: 10/08/21 09:44 Last Admin: 10/08/21 00:45 Dose: 50 mls/hr Documented by: CHANDLER Labetalol HCl (Labetalol Hcl 100 Mg Tablet) 100 mg PO BID [facility]; Protocol Last Admin: 10/07/21 22:04 Dose: 100 mg Documented by: CHANDLER Morphine Sulfate (Morphine Sulfate 4 Mg/Ml Cartridge) 4 mg IVPUSH Q3H PRN; Protocol PRN Reason: Pain, Severe (Pain Scale 7-10) Last Admin: 10/08/21 01:35 Dose: 4 mg Documented by: CHANDLER Ondansetron HCl (Ondansetron Hcl 4 Mg/2 Ml Vial) 4 mg IVPUSH Q8H PRN PRN Reason: Nausea Pharmacy Consult (Consult Rx Perform Med Rec) 1 each MISCELLANE ONCE PRN PRN Reason: Consult order Sertraline HCl (Sertraline Hcl 100 Mg Tablet) 100 mg PO DAILY [facility] Sodium Chloride (0.9 % Sodium Chloride Flush 3 Ml Syringe) 3 ml IVFLUSH QSHIFT [facility] Last Admin: 10/07/21 22:04 Dose: 3 ml Documented by: CHANDLER Labs CBC & Chem 7: 10/08/21 04:30 10/08/21 04:30 Labs: Laboratory Results - last 24 hr 10/07/21 10/07/21 10/07/21 16:05 16:05 16:06 MCV 104.3 H MCH 32.1 MCHC 30.8 L RDW 17.8 H Plt Count 302 D MPV 8.8 L Immature Gran % (Auto) 0.6 H Neut % (Auto) 82.7 H Lymph % (Auto) 7.7 L [place] % (Auto) 6.3 Eos % (Auto) 1.9 Baso % (Auto) 0.8 Lymph # (Auto) 0.8 L [place] # (Auto) 0.6 Eos # (Auto) 0.2 Baso # (Auto) 0.1 Abs Immat Gran (auto) 0.06 H Absolute Neuts (auto) 8.1 Absolute Nucleated RBC 0.000 Nucleated RBC % (auto) 0.0 Anion Gap Estim Creat Clear Calc Estimated GFR Random Glucose Lactic Acid Calcium Magnesium Total Bilirubin Direct Bilirubin AST ALT Alkaline Phosphatase B-Natriuretic Peptide 2562 H Total Protein Albumin Lipase COVID-19 ([facility]) Negative COVID-19 Clin Com See Note 10/07/21 10/07/21 10/08/21 16:06 18:04 04:30 MCV 105.1 H MCH 32.5 MCHC 31.0 RDW 17.7 H Plt Count 301 MPV 8.9 L Immature Gran % (Auto) 0.5 H Neut % (Auto) 84.6 H Lymph % (Auto) 6.6 L [place] % (Auto) 6.3 Eos % (Auto) 1.3 Baso % (Auto) 0.7 Lymph # (Auto) 0.7 L [place] # (Auto) 0.7 Eos # (Auto) 0.2 Baso # (Auto) 0.1 Abs Immat Gran (auto) 0.06 H Absolute Neuts (auto) 9.5 H Absolute Nucleated RBC 0.000 Nucleated RBC % (auto) 0.0 Anion Gap 20 Estim Creat Clear Calc 7.4 Estimated GFR 9 Random Glucose 85 Lactic Acid 0.6 Calcium 9.6 D Magnesium 2.2 Total Bilirubin 0.8 Direct Bilirubin 0.4 AST 16 ALT 9 Alkaline Phosphatase 102 B-Natriuretic Peptide Total Protein 6.7 Albumin 3.7 Lipase 20 COVID-19 ([facility]) COVID-19 Clin Com 10/08/21 04:30 MCV MCH MCHC RDW Plt Count MPV Immature Gran % (Auto) Neut % (Auto) Lymph % (Auto) [place] % (Auto) Eos % (Auto) Baso % (Auto) Lymph # (Auto) [place] # (Auto) Eos # (Auto) Baso # (Auto) Abs Immat Gran (auto) Absolute Neuts (auto) Absolute Nucleated RBC Nucleated RBC % (auto) Anion Gap 19 Estim Creat Clear Calc 7.4 Estimated GFR 9 Random Glucose 65 Lactic Acid Calcium 8.5 D Magnesium Total Bilirubin Direct Bilirubin AST ALT Alkaline Phosphatase B-Natriuretic Peptide Total Protein Albumin Lipase COVID-19 ([facility]) COVID-19 Clin Com Procedures Date of Service Date of Service: 10/08/21 Progress Note: A&P Assessment and plan (1) Sigmoid diverticulitis: Status: Acute Assessment and Plan: distended but soft will likely need stoma/ resection - may be too frail to tolerate prolonged procedure dw hospitalist will review Ct with radiologist NPO dialysis due for today awaiting discussions with daughter Lizett Plan ?diverticular stricture Fall Risk Details Current Medications: Current Medications Allopurinol (Allopurinol 100 Mg Tablet) 100 mg PO DAILY [facility] Amlodipine Besylate (Amlodipine Besylate 10 Mg Tablet) 10 mg PO DAILY [facility]; Protocol Piperacillin Sod/Tazobactam (Sod 2.25 gm/ Sodium Chloride) 50 mls @ 100 mls/hr IV Q8H [facility] Last Infusion: 10/08/21 02:47 Dose: Infused Documented by: Sodium Chloride (Ns) 500 mls @ 50 mls/hr IV .Q10H [facility] Stop: 10/08/21 09:44 Last Admin: 10/08/21 00:45 Dose: 50 mls/hr Documented by: Labetalol HCl (Labetalol Hcl 100 Mg Tablet) 100 mg PO BID [facility]; Protocol Last Admin: 10/07/21 22:04 Dose: 100 mg Documented by: Morphine Sulfate (Morphine Sulfate 4 Mg/Ml Cartridge) 4 mg IVPUSH Q3H PRN; Protocol PRN Reason: Pain, Severe (Pain Scale 7-10) Last Admin: 10/08/21 01:35 Dose: 4 mg Documented by: Ondansetron HCl (Ondansetron Hcl 4 Mg/2 Ml Vial) 4 mg IVPUSH Q8H PRN PRN Reason: Nausea Pharmacy Consult (Consult Rx Perform Med Rec) 1 each MISCELLANE ONCE PRN PRN Reason: Consult order Sertraline HCl (Sertraline Hcl 100 Mg Tablet) 100 mg PO DAILY [facility] Sodium Chloride (0.9 % Sodium Chloride Flush 3 Ml Syringe) [address] [facility] Last Admin: 10/07/21 22:04 Dose: 3 ml Documented by: Time Spent With Patient Time: Total time spent is greater than 50% in coordination of care (as documented) at patient's floor/unit and/or counseling patient: Time with patient: 15 - 24 minutes Quality Stroke Does the patient have a stroke diagnosis?: No VTE Prior VTE?: No VTE Risk Level:: Surgical - moderate VTE Device Contraindication: N/A - Device Ordered VTE Drug Contraindication: N/A - Med Ordered
[2021-10-08] MEDS: ondansetron HCL 4 MG/2 ML VIAL IVPUSH ×2 (09:50→16:30)
[2021-10-08] MEDS: 0.9 % Sodium Chloride Flush 3 ML SYRINGE IVFLUSH ×2 (09:53→16:30)
--- NOTE | 2021-10-08 11:30 | HO.PM.IMCN ---
History of Present Illness Data of Consult Service Date: 10/08/21 Primary Care Provider: BETTY Mccain HPI 86yo legally blind M with ESRD on HD MWF, anemia of CKD, HFpEF, GERD, AAA s/p EVAR 03/02/21, HTN, gout, prostate CA s/p radical prostatectomy, hx GI bleed, hx colonic polyp s/p polypectomy. He was admitted to [facility] 09/10-09/15/21 for acute diverticulitis with question of possible melena.? He was discharged on ciprolofloxacin and metronidazole and completed his last doses on 09/16/21.? He was re-admitted to [facility] 09/26-09/29/21 for sigmoid diverticulitis and treated with pipercaillin/tazobactam; he was discharged on amoxicillin/clavaulanate. He came in to the ED yesterday with worsening pain and nausea, and was found to have severe sigmoid diverticulosis with heterogeneously enhancing sigmoid wall tissue with infiltration into the mesentery, suspicious for sigmoied neoplasm. He has developed a bowel obstruction proximal to the sigmoid. He was admitted to the general surgery service and we are consulted for medical management. His last dialysis was 10/05/21. He c/o moderate-severe abdominal pain with nausea. [place] [facility] [place] showed: The left ventricular size is normal. The left ventricular wall thickness is mildly increased. There is mild to moderate concentric left ventricular hypertrophy. Normal LV systolic function. Ejection fraction is 60-65%. There are no regional wall motion abnormalities. Unable to assess diastolic function due to severe mitral annulus calcification . Trileaflet aortic valve. The aortic valve appears mildly to moderately thickened. The aortic valve appears moderately to severely calcified. There is moderate aortic stenosis. There is mild aortic regurgitation. The peak gradient is 50 mmHg. The mean gradient is 29 mmHg. ELSA 1.04cm2 (VTI). There is severe mitral annular calcification. The mitral valve appears mildly thickened and calcified. There is mild mitral regurgitation. There is mild mitral stenosis. The mitral valve mean gradient is 6 mmHg at 69bpm. The pulmonary artery systolic pressure estimation is 40-45 mmHg. There is mild pulmonary hypertension. There is no significant pericardial effusion. Review of Systems Review of Systems: Yes all other systems are reviewed and are negative [facility] Medical History (HFpEF) heart failure with preserved ejection fraction AAA (abdominal aortic aneurysm) Abdominal pain Anemia Anemia in ESRD (end-stage renal disease) CKD (chronic kidney disease) Colonic polyp CRF (chronic renal failure) Depression Diverticulitis Diverticulosis ESRD (end stage renal disease) on dialysis GERD (gastroesophageal reflux disease) Gout History of prostate cancer HTN (hypertension) Surgical History H/O colectomy H/O prostatectomy History of colonoscopy with polypectomy S/P AAA repair Social History Household Members: Spouse Housing: House Do you presently have visiting nurse or other home services: Yes (house keeper) Alcohol intake: never Patient Tobacco Use Status: Former Tobacco user Substance Use Type: Marijuana Advance Directives Date on File: 09/26/21 service: Yes Current occupational status: retired Rapid Pathogen Screenings Allergies Allergy/AdvReac Type Severity Reaction Status Date / Time oxycodone Allergy Hallucinati Verified 09/26/21 10:14 ons aspirin AdvReac Stomach Verified 09/26/21 10:14 Upset sevelamer [From Renvela] AdvReac Stomach Verified 09/26/21 10:14 Upset [id number] Reductase AdvReac Stomach Verified 09/26/21 10:14 Inhibitor Upset Active Medications: Current Medications Allopurinol (Allopurinol 100 Mg Tablet) 100 mg PO DAILY [facility] Last Admin: 10/08/21 10:08 Dose: Not Given Documented by: Amlodipine Besylate (Amlodipine Besylate 10 Mg Tablet) 10 mg PO DAILY [facility]; Protocol Last Admin: 10/08/21 10:09 Dose: Not Given Documented by: Piperacillin Sod/Tazobactam (Sod 2.25 gm/ Sodium Chloride) 50 mls @ 100 mls/hr IV Q8H [facility] Last Infusion: 10/08/21 10:42 Dose: Infused Documented by: Labetalol HCl (Labetalol Hcl 100 Mg Tablet) 100 mg PO BID [facility]; Protocol Last Admin: 10/08/21 10:09 Dose: Not Given Documented by: Morphine Sulfate (Morphine Sulfate 4 Mg/Ml Cartridge) 4 mg IVPUSH Q3H PRN; Protocol PRN Reason: Pain, Severe (Pain Scale 7-10) Last Admin: 10/08/21 09:53 Dose: 4 mg Documented by: Ondansetron HCl (Ondansetron Hcl 4 Mg/2 Ml Vial) 4 mg IVPUSH Q8H PRN PRN Reason: Nausea Last Admin: 10/08/21 09:50 Dose: 4 mg Documented by: Pharmacy Consult (Consult Rx Perform Med Rec) 1 each MISCELLANE ONCE PRN PRN Reason: Consult order Sertraline HCl (Sertraline Hcl 100 Mg Tablet) 100 mg PO DAILY [facility] Last Admin: 10/08/21 10:09 Dose: Not Given Documented by: Sodium Chloride (0.9 % Sodium Chloride Flush 3 Ml Syringe) 3 ml IVFLUSH QSHIFT [facility] Last Admin: 10/08/21 09:53 Dose: 3 ml Documented by: Home Medications Medication Instructions Recorded Confirmed Last Taken Type allopurinol 100 mg tablet 100 mg PO DAILY 09/26/21 10/07/21 Unknown History amlodipine 10 mg tablet (Norvasc) 10 mg PO DAILY 09/26/21 10/07/21 Unknown History cinacalcet 30 mg tablet 30 mg PO BID 09/26/21 10/07/21 Unknown History labetalol 100 mg tablet 100 mg PO BID 09/26/21 10/07/21 Unknown History pantoprazole 20 mg tablet,delayed 20 mg PO DAILY 09/26/21 10/07/21 Unknown History release (Protonix) sertraline 100 mg tablet (Zoloft) 100 mg PO DAILY 09/26/21 10/07/21 Unknown History vitamin B complex-vitamin C-folic 1 tab PO DAILY 09/26/21 10/07/21 Unknown History acid 1 mg tablet white petrolatum-mineral oil 83 1 appl OPHTHALMIC-RIGHT BID 09/26/21 10/07/21 Unknown History %-15 % eye ointment Physical Exam Vital Signs and Narrative: Vital Signs: Last Vital Signs Temp 96.9 F 10/08/21 11:16 Pulse 80 10/08/21 11:16 Resp 18 10/08/21 11:16 BP 103/62 10/08/21 11:16 Pulse Ox 99 10/08/21 11:16 BMI result Body Mass Index 18.6 Gen: frail, chronically-ill appearing HEENT: sclera anicteric, moist mucus membranes Neck: supple Lungs: clear to auscultation bilaterally Heart: regular rate and rhythm, no murmurs Abd: distended, lower tenderness Ext: LUE fistula Skin: warm/well-perfused Neuro: alert and oriented x3, no focal findings Psych: appropriate affect Results Labs CBC and Chem 7: 10/08/21 04:30 10/08/21 04:30 Labs: Laboratory Results - last 24 hr 10/07/21 10/07/21 10/07/21 16:05 16:05 16:06 MCV 104.3 H MCH 32.1 MCHC 30.8 L RDW 17.8 H Plt Count 302 D MPV 8.8 L Immature Gran % (Auto) 0.6 H Neut % (Auto) 82.7 H Lymph % (Auto) 7.7 L [place] % (Auto) 6.3 Eos % (Auto) 1.9 Baso % (Auto) 0.8 Lymph # (Auto) 0.8 L [place] # (Auto) 0.6 Eos # (Auto) 0.2 Baso # (Auto) 0.1 Abs Immat Gran (auto) 0.06 H Absolute Neuts (auto) 8.1 Absolute Nucleated RBC 0.000 Nucleated RBC % (auto) 0.0 Anion Gap Estim Creat Clear Calc Estimated GFR Random Glucose Lactic Acid Calcium Magnesium Total Bilirubin Direct Bilirubin AST ALT Alkaline Phosphatase B-Natriuretic Peptide 2562 H Total Protein Albumin Lipase COVID-19 ([facility]) Negative COVID-19 Clin Com See Note 10/07/21 10/07/21 10/08/21 16:06 18:04 04:30 MCV 105.1 H MCH 32.5 MCHC 31.0 RDW 17.7 H Plt Count 301 MPV 8.9 L Immature Gran % (Auto) 0.5 H Neut % (Auto) 84.6 H Lymph % (Auto) 6.6 L [place] % (Auto) 6.3 Eos % (Auto) 1.3 Baso % (Auto) 0.7 Lymph # (Auto) 0.7 L [place] # (Auto) 0.7 Eos # (Auto) 0.2 Baso # (Auto) 0.1 Abs Immat Gran (auto) 0.06 H Absolute Neuts (auto) 9.5 H Absolute Nucleated RBC 0.000 Nucleated RBC % (auto) 0.0 Anion Gap 20 Estim Creat Clear Calc 7.4 Estimated GFR 9 Random Glucose 85 Lactic Acid 0.6 Calcium 9.6 D Magnesium 2.2 Total Bilirubin 0.8 Direct Bilirubin 0.4 AST 16 ALT 9 Alkaline Phosphatase 102 B-Natriuretic Peptide Total Protein 6.7 Albumin 3.7 Lipase 20 COVID-19 ([facility]) COVID-19 Clin Com 10/08/21 04:30 MCV MCH MCHC RDW Plt Count MPV Immature Gran % (Auto) Neut % (Auto) Lymph % (Auto) [place] % (Auto) Eos % (Auto) Baso % (Auto) Lymph # (Auto) [place] # (Auto) Eos # (Auto) Baso # (Auto) Abs Immat Gran (auto) Absolute Neuts (auto) Absolute Nucleated RBC Nucleated RBC % (auto) Anion Gap 19 Estim Creat Clear Calc 7.4 Estimated GFR 9 Random Glucose 65 Lactic Acid Calcium 8.5 D Magnesium Total Bilirubin Direct Bilirubin AST ALT Alkaline Phosphatase B-Natriuretic Peptide Total Protein Albumin Lipase COVID-19 ([facility]) COVID-19 Clin Com Imaging Radiologist's Impressions: Impressions Chest X-Ray 10/07/21 16:00 IMPRESSION: Residual patchiness in both lungs. Pleural-based calcifications. Abdomen/Pelvis CT 10/07/21 16:42 IMPRESSION: * Findings suggestive of severe diverticular disease of the sigmoid colon. Also, findings are suspicious for superimposed sigmoid neoplasm due to presence of heterogeneously enhancing tissue of the sigmoid wall and infiltration of enhancing tissue into the sigmoid mesentery. Interval development of bowel obstruction proximal to the thick-walled sigmoid. Small volume of abdominal free fluid is present. No pneumoperitoneum. * Cholelithiasis without cholecystitis. * Atherosclerotic disease of peripheral vessels and aortobiiliac stent graft in place. Again noted is a thrombosed saccular aneurysm of the [place] infrarenal abdominal aorta. * Old loculated bilateral pleural effusions, bibasilar opacities from atelectasis and/or fibrosis, and emphysematous disease in the visualized bases. * Again noted is abnormal lobulation of the lower pole of the right kidney which has a 1.9 cm proteinaceous cyst or enhancing tumor. In addition, there are two other areas of cortical lobulation or enhancing neoplasms at the right lower pole. Assessment and Plan (1) Sigmoid diverticulitis: Status: Acute (2) Bowel obstruction: Status: Acute Plan 86yo legally blind M with ESRD on HD MWF, anemia of CKD, HFpEF, GERD, AAA s/p EVAR 03/02/21, HTN, gout, prostate CA s/p radical prostatectomy, hx GI bleed, hx colonic polyp s/p polypectomy. He's had [place] [facility] [place], for sigmoid diverticulitis, managed medically. He now presents with recurrent and worsening symptoms with bowel obstruction and question of underlying malignancy. He is currently on piperacillin/tazobactam IV but has clearly failed medical management. Consideration is being given to surgical management by resection or diverting colostomy; however, he is at high risk of cardiovascular complications from anesthesia given ESRD, AAA, and aortic and mitral stenosis. He and his family are considering option of hospice care, given the risks of surgery. In the meanwhile, will consult Nephrology to continue HD MWF. Continue labetalol and amlodipine for HTN and allopurinol for gout. Thank you for this consultation. We will continue to follow the patient with you in the hospital.
--- NOTE | 2021-10-08 11:41 | MHC.CM.PN ---
IMM 10/08/21, EMR REVIEWED, PT ADMITTED W/BOWEL OBSTRUCTION, CM ATTEMPTED TO MEET W/PT HOWEVER PT EXTREMELY NAUSEAS AND UNABLE TO ANSWER MOST QUESTIONS, CM WAS ABLE TO DELIVER IMM AND MAJORITY OF ASSESSMENT FROM PREVIOUS ADMISSION EARLIER THIS MONTH, PER RECORD PT LIVES W/ AND IS INDEP W/CARE AND LIVES W/, HAS [facility]. PT HAS NOT SEEN ANALY LINCOLN IN YEARS AND USUALLY AASKS THE DOCTOR AT THE [facility] FOR ORDERS OR DIRECTION. HD IS M-W-F AND PT UTILIZES PVTA TO GET TO APPT'S. PT USES A SCOOTER TO GET AROUND THE COMMUNITY. PT REPORTS HE HAS A HCP THAT IS HIS AND DTR. PT REPORTS HE IS FLLY VACCINATED AGainst covid and has had 3 vaccines, unsure of which at this time. D/C PLAN: HOME W/RESUMP OF YACHT RIGGER AND [facility] MWF, FOR TRANSPORT.
--- NOTE | 2021-10-08 13:13 | P.EN_ITS ---
Event Note Date of Service: 10/08/21 Event Note: discussions with patient as well as daughter Lizett today CT scan suggests distal obstruction of the sigmoid likely from diverticular disease versus malignancy his abdomen remains soft although distended, with no guarding rebound he is passing some dark tarry stools he complains of crampy abdominal pain that comes in waves in view of overall clinical picture and CT scan findings, I discussed the option of diverting loop colostomy with him I reviewed the risks including but not limited to bleeding, infections, inherent risks of anesthesia, respiratory failure he understands that he had been deemed to present with high operative risks in view of his multiple medical problems including ESRD, poor baseline level of function, aortic and mitral valve stenosis seen by hospitalist service he had a discussion with his daughter at bedside and their plan was to not do any further invasive measures he says that he wants to be given pain medications for comfort the family is thinking of possibly being him home on hospice the daughter stated that the patient has had previous discussion with his primary care physician about hospice care no surgical intervention therefore plan to go ahead with hemodialysis discussed above with corrections caseworker so they can assist the family
--- NOTE | 2021-10-08 13:14 | MHC.CM.PN ---
CM MET W/SURGICAL WHO REPORTED FAMILY/PT DOES NOT WANT SURGERY AND ARE CONSIDERING C,O/HOSPICE, CM MET W/PT AND DTR DOUG WHO WAS AT BEDSIDE AND THEY WERE UNSURE AT THIS TIME WHETHER THEY WOULD WANT PT HOME OR IN FACILITY, HOWEVER PT PREFERS TO REMAIN HERE AT [facility] THEN GO TO SNF, DTR REPORTS PT'S WILL BE IN LATER TODAY AND CM WILL MEET W/FAMILY AND PT AGAIN ONCE PT'S IS HERE.
[2021-10-08] MEDS: Simethicone 80 MG TAB.CHEW PO (13:48)
--- NOTE | 2021-10-08 17:10 | P.EN_ITS ---
Event Note Date of Service: 10/08/21 Event Note: pt has stated he no longer wants to do hemodialysis and daughter in room awaiting input from case management specialist re: hospice at home pain mgt with IV morphine DNR/DNI in effect
[2021-10-09] MEDS: Piperacillin Sodium/Tazobactam 2.25 GM in 0.9 % Sodium Chloride 50 ML IV (01:17)
[2021-10-09 03:40] VITALS: BP 106/64; PULSE 89; RESP 17; TEMP 36.6; O2SAT 94
[2021-10-09] MEDS: Morphine Sulfate 4 MG/ML CARTRIDGE IVPUSH ×5 (04:08→14:30)
[2021-10-09 07:26] VITALS: BP 85/52
--- NOTE | 2021-10-09 07:36 | P.PNGS_ITS ---
Subjective Subjective Date of Service: 10/09/21 Interval history: complains of lower abdominal pain does not want hemodialysis anymore he wants to go home on hospice Physical Exam Vital Signs: Vital Signs: Last Vital Signs Temp 97.8 F 10/09/21 03:40 Pulse 89 10/09/21 03:40 Resp 17 10/09/21 03:40 BP 85/52 L 10/09/21 07:26 Pulse Ox 94 10/09/21 03:40 BMI result Body Mass Index 18.6 Const: Other: appears extremely frail, drowsy Resp: Other: a little labored breathing Cardio: Rhythm: regular rhythm GI: Palpation (GI): Soft to palpation, Tenderness to palpation present (GI), no guarding and not rigid Objective Data Active Medications Allopurinol (Allopurinol 100 Mg Tablet) 100 mg PO DAILY [facility] Last Admin: 10/08/21 10:08 Dose: Not Given Documented by: MAGED Non-Admin Reason: Nausea Amlodipine Besylate (Amlodipine Besylate 10 Mg Tablet) 10 mg PO DAILY [facility]; Protocol Last Admin: 10/08/21 10:09 Dose: Not Given Documented by: MAGED Non-Admin Reason: Nausea Piperacillin Sod/Tazobactam (Sod 2.25 gm/ Sodium Chloride) 50 mls @ 100 mls/hr IV Q8H [facility] Last Infusion: 10/09/21 01:50 Dose: 0 mls/hr Documented by: CHANDLER Labetalol HCl (Labetalol Hcl 100 Mg Tablet) 100 mg PO BID [facility]; Protocol Last Admin: 10/08/21 20:12 Dose: Not Given Documented by: CHANDLER Non-Admin Reason: Decreased Blood Pressure Morphine Sulfate (Morphine Sulfate 4 Mg/Ml Cartridge) 4 mg IVPUSH Q3H PRN; Protocol PRN Reason: Pain, Severe (Pain Scale 7-10) Last Admin: 10/09/21 04:08 Dose: 4 mg Documented by: CHANDLER Ondansetron HCl (Ondansetron Hcl 4 Mg/2 Ml Vial) 4 mg IVPUSH Q8H PRN PRN Reason: Nausea Last Admin: 10/08/21 16:30 Dose: 4 mg Documented by: SHANTA Pharmacy Consult (Consult Rx Perform Med Rec) 1 each MISCELLANE ONCE PRN PRN Reason: Consult order Sertraline HCl (Sertraline Hcl 100 Mg Tablet) 100 mg PO DAILY [facility] Last Admin: 10/08/21 10:09 Dose: Not Given Documented by: MAGED Non-Admin Reason: Nausea Simethicone (Simethicone 80 Mg Tab.Chew) 80 mg PO Q3H PRN PRN Reason: Gas Last Admin: 10/08/21 13:48 Dose: 80 mg Documented by: MAGED Sodium Chloride (0.9 % Sodium Chloride Flush 3 Ml Syringe) 3 ml IVFLUSH QSHIFT [facility] Last Admin: 10/08/21 20:13 Dose: Not Given Documented by: CHANDLER Non-Admin Reason: IV Running Labs CBC & Chem 7: 10/08/21 04:30 10/08/21 04:30 Microbiology Microbiology Results: Microbiology 10/07/21 18:18 Blood Culture - Preliminary Blood - Venous No growth after 24 hours. 10/07/21 18:04 Blood Culture - Preliminary Blood - Venous No growth after 24 hours. Procedures Date of Service Date of Service: 10/08/21 Progress Note: A&P Assessment and plan (1) Sigmoid diverticulitis: Status: Acute Assessment and Plan: likely has neoplastic process as well in the colon family and patient decided against any further intervention awaiting arrangements for home hospice - discussed with case hardener yesterday patient has refused hemodialysis comfort measures, pain meds discussed with hospitalist service Fall Risk Details Current Medications: Current Medications Allopurinol (Allopurinol 100 Mg Tablet) 100 mg PO DAILY [facility] Last Admin: 10/08/21 10:08 Dose: Not Given Documented by: Amlodipine Besylate (Amlodipine Besylate 10 Mg Tablet) 10 mg PO DAILY [facility]; Protocol Last Admin: 10/08/21 10:09 Dose: Not Given Documented by: Piperacillin Sod/Tazobactam (Sod 2.25 gm/ Sodium Chloride) 50 mls @ 100 mls/hr IV Q8H [facility] Last Infusion: 10/09/21 01:50 Dose: Infused Documented by: Labetalol HCl (Labetalol Hcl 100 Mg Tablet) 100 mg PO BID [facility]; Protocol Last Admin: 10/08/21 20:12 Dose: Not Given Documented by: Morphine Sulfate (Morphine Sulfate 4 Mg/Ml Cartridge) 4 mg IVPUSH Q3H PRN; Protocol PRN Reason: Pain, Severe (Pain Scale 7-10) Last Admin: 10/09/21 04:08 Dose: 4 mg Documented by: Ondansetron HCl (Ondansetron Hcl 4 Mg/2 Ml Vial) 4 mg IVPUSH Q8H PRN PRN Reason: Nausea Last Admin: 10/08/21 16:30 Dose: 4 mg Documented by: Pharmacy Consult (Consult Rx Perform Med Rec) 1 each MISCELLANE ONCE PRN PRN Reason: Consult order Sertraline HCl (Sertraline Hcl 100 Mg Tablet) 100 mg PO DAILY [facility] Last Admin: 10/08/21 10:09 Dose: Not Given Documented by: Simethicone (Simethicone 80 Mg Tab.Chew) 80 mg PO Q3H PRN PRN Reason: Gas Last Admin: 10/08/21 13:48 Dose: 80 mg Documented by: Sodium Chloride (0.9 % Sodium Chloride Flush 3 Ml Syringe) 3 ml IVFLUSH QSHIFT [facility] Last Admin: 10/08/21 20:13 Dose: Not Given Documented by: Time Spent With Patient Time: Total time spent is greater than 50% in coordination of care (as documented) at patient's floor/unit and/or counseling patient: Time with patient: 25 - 35 minutes Quality Stroke Does the patient have a stroke diagnosis?: No VTE Prior VTE?: No VTE Risk Level:: Surgical - moderate VTE Device Contraindication: N/A - Device Ordered VTE Drug Contraindication: N/A - Med Ordered
[2021-10-09 07:50] VITALS: PULSE 89; O2SAT 96
[2021-10-09] MEDS: 0.9 % Sodium Chloride Flush 3 ML SYRINGE IVFLUSH ×2 (07:52→14:33)
--- NOTE | 2021-10-09 09:51 | P.PNIM_ITS ---
Subjective Subjective Date of Service: 10/09/21 Interval History: Pt declines dialysis Wishes to go home on hospice but needs 24/ care BP low C/o abd pain Review of Systems Review of Systems: Yes all other systems are reviewed and are negative Physical Exam Vital Signs: Vital Signs: Last Vital Signs Temp 97.8 F 10/09/21 03:40 Pulse 89 10/09/21 07:50 Resp 17 10/09/21 03:40 BP 85/52 L 10/09/21 07:26 Pulse Ox 96 10/09/21 07:50 BMI result Body Mass Index 18.6 Gen: ill-appearing, frail HEENT: sclera anicteric, moist mucus membranes Neck: supple Lungs: clear to auscultation bilaterally Heart: regular rate and rhythm, no murmurs Abd: soft, lower tenderness Ext: no edema, LUE fistula Skin: warm/well-perfused Neuro: alert and oriented x3, no focal findings Psych: restricted affect Objective Data Active Medications Lorazepam (Lorazepam 2 Mg/Ml Vial) 0.5 mg IVPUSH Q2H PRN PRN Reason: anxiety Morphine Sulfate (Morphine Sulfate 4 Mg/Ml Cartridge) 4 mg IVPUSH Q2H PRN; Protocol PRN Reason: Pain, Severe (Pain Scale 7-10) Ondansetron HCl (Ondansetron Hcl 4 Mg/2 Ml Vial) 4 mg IVPUSH Q8H PRN PRN Reason: Nausea Last Admin: 10/08/21 16:30 Dose: 4 mg Documented by: SHANTA Simethicone (Simethicone 80 Mg Tab.Chew) 80 mg PO Q3H PRN PRN Reason: Gas Last Admin: 10/08/21 13:48 Dose: 80 mg Documented by: MAGED Sodium Chloride (0.9 % Sodium Chloride Flush 3 Ml Syringe) [facility] Last Admin: 10/09/21 07:52 Dose: 3 ml Documented by: SARA Labs CBC & Chem 7: 10/08/21 04:30 10/08/21 04:30 Microbiology Microbiology Results: Microbiology 10/07/21 18:18 Blood Culture - Preliminary Blood - Venous No growth after 24 hours. 10/07/21 18:04 Blood Culture - Preliminary Blood - Venous No growth after 24 hours. Assessment and Plan (1) Diverticulitis: Plan hospital d#3 86yo legally blind M with ESRD on HD MWF, anemia of CKD, HFpEF, GERD, AAA s/p EVAR 03/02/21, HTN, gout, prostate CA s/p radical prostatectomy, hx GI bleed, hx colonic polyp s/p polypectomy, 2 recent admissions [place] [facility] [place] [facility] [place] for sigmoid diverticulitis re-admitted to surgical service for bowel obstruction and question of underlying sigmoid colonic malignancy causing recurrent diverticulitis after discussion of elevated surgical risk, pt is transitioning to hospice care, ideally at home meanwhile, in the hospital, will manage pain + anxiety with IV morphine + IV lorazepam CM [facility] non-palliattive medications + interventions discussed with surgeon Dr Alston and pt and his daughter Lizett via phone Quality Stroke Does the patient have a stroke diagnosis?: No VTE Prior VTE?: No VTE Risk Level:: Surgical - moderate VTE Device Contraindication: N/A - Device Ordered VTE Drug Contraindication: N/A - Med Ordered
--- NOTE | 2021-10-09 09:56 | CONS_ITS ---
DATE OF SERVICE: 10/08/2021 REASON FOR CONSULTATION: I was called to see this patient to assist in the management of patient's dialysis requirements. HISTORY OF PRESENT ILLNESS: To summarize, Farrukh is an 86-year-old man with a history of ESRD, on hemodialysis Friday, Friday, Friday. He came in because of abdominal pain and he was found to have severe sigmoid diverticular disease. He is being evaluated by Surgery. This consult was requested for the management of dialysis requirements. PAST MEDICAL HISTORY: Ongoing medical problems include history of ESRD, on dialysis Friday, Friday, Friday; history of heart failure with preserved ejection fraction; hypertension; history of AAA, status post repair; prostate cancer, status post radical prostatectomy; history of GI bleed; history of colonic polyps, status post polypectomy; history of recurrent diverticulitis and recent admission was 2 weeks ago. HOME MEDICATIONS: Include allopurinol, amlodipine 10 mg, cinacalcet, labetalol, pantoprazole, Sertraline, vitamin B complex. He was recently treated with amoxicillin. ALLERGIES: HE IS ALLERGIC TO OXYCODONE, ASPIRIN, SEVELAMER, AND STATINS. REVIEW OF SYSTEMS: Positive for abdominal pain. No headache, nausea, or vomiting. No fever. No shortness of breath. No cough. No diarrhea. All other systems were reviewed on examination. SOCIAL HISTORY: He has no history of any smoking or alcohol abuse at present. History of smoking in the past. PAST SURGICAL HISTORY: Significant for colectomy, prostatectomy, and AAA repair. PHYSICAL EXAMINATION: GENERAL: Farrukh is elderly man. He appears healed, not in any distress. NECK: Supple. No JVD. LUNGS: Air entry equal. No rales. HEART: S1, S2 heard. No gallop or rub. ABDOMEN: Slightly tense, no rebound or guarding. Bowel sounds sluggish. EXTREMITIES: No edema, no rash, no clubbing. Has AV fistula in the left arm. VITAL SIGNS: Blood pressure today was 120/67, pulse 100, temperature 97.4. LABORATORY DATA: WBC 11.2, hemoglobin 10.9, platelets 301. Serum electrolytes normal. BUN 41, creatinine 6.18. CT abdomen was reviewed. IMPRESSION: 86-year-old man with end-stage renal disease, admitted with diverticular disease. From a renal standpoint, Farrukh has been well dialyzed. We will arrange for hemodialysis today. We will not remove fluid at the present time since he appears clinically volume depleted. No indication for Epogen today. We will follow hemoglobin and add Epogen as needed. We will continue to dialyze him on Friday, Friday, Friday as per protocol. Norman Smith MD BPA/MODL / [phone]
--- NOTE | 2021-10-09 10:52 | PM.PNNEP ---
Subjective Subjective Date of Service: 10/10/21 Interval history: Events noted REfused dialysis Physical Exam Vital Signs: Vital Signs: Last Vital Signs Temp 97.8 F 10/09/21 03:40 Pulse 89 10/09/21 07:50 Resp 17 10/09/21 03:40 BP 85/52 L 10/09/21 07:26 Pulse Ox 96 10/09/21 07:50 BMI result Body Mass Index 18.6 Objective Data Labs CBC & Chem 7: 10/08/21 04:30 10/08/21 04:30 Microbiology Microbiology Results: Microbiology 10/07/21 18:18 Blood - Venous Blood Culture - Preliminary No growth after 24 hours. 10/07/21 18:04 Blood - Venous Blood Culture - Preliminary No growth after 24 hours. Procedures Date of Service Date of Service: 10/09/21 Assessment & Plan Assessment and plan (1) ESRD (end stage renal disease) on dialysis: Status: Acute Plan Refusing HD Await hospice supportive care Time Spent With Patient Time: Total time spent is greater than 50% in coordination of care (as documented) at patient's floor/unit and/or counseling patient: Time with patient: less than 15 minutes Progress Note: Quality Stroke Does the patient have a stroke diagnosis?: No
--- NOTE | 2021-10-09 15:37 | MHC.CM.PN ---
NURSE TELEVISION PRODUCTION ASSISTANT DILLON SPOKE WITH DOMINIC PATIENTS SPOUSE ABOUT HOSPICE INFORMATIONAL MEETING AND SPOEK WITH KENNEDY AT [facility] , SHE LATER CALLED ME AND REPORTED THAT THE MD CALLED THE JAIRO MCDERMOTT AND TOLD HER THAT THEY WERE KEEPNG HIM TODAY SEARCH ENGINE MARKETING MANAGER , THUS THE FAMILY CANCELLED THE MEETING . DCP HOME WITH [facility] IF ACCEPTED SOMEONE BESIDES PTS WOULD NEED TO BE WITH THEM , THEY THOUGHT THE [facility] WOULD PROVIDE 24 HOUR CARE IN THE HOME , THEY WILL NOT ONLY 24 HOURS CARE IN SNF FOR HOSPICE AND FAMILY WOULD HAVE TO PAY FOR ROOM AND BOARD , ALISSA DOES NOT WANT SNF AND CHOOSES NOT TO DISCUSS THIS MATTER TODAY PATIENTS CONDITION PER THE HOSPITALIST HAS DECLINED , CASE MANGER TO FOLLOW UP TOMORROW
--- NOTE | 2021-10-09 16:18 | PM.EVENT ---
Event Note Date of Service: 10/09/21 Event Note: Patient for comfort measures only No hemodialysis No blood draws Family in room Patient appears very drowsy Hospitalist involved as well
--- NOTE | 2021-10-09 16:30 | P.DN_ITS ---
Discharge Sum: Prov Provider Primary care physician: BETTY Mccain Consults: 10/08/21 07:49 Consult to Hospitalist Routine Consulting Provider: Hospitalist Reason For Exam: ESRD, will need laparotomy/colostomy 10/08/21 11:46 Consult to Nephrology Routine Consulting Provider: Norman Smith Reason for consultation: ESRD on HD MWF Discharge Sum: Diag Contributing Factors (1) Sigmoid diverticulitis: (2) Colonic mass: (3) ESRD (end stage renal disease) on dialysis: (4) Bowel obstruction: Discharge Sum: Summary Date and Time Date of admission: 10/07/21 18:19 Date of : 10/09/21 Time of : 16:26 Summary Details: From admission H+P by surgeon Angelia Tipton, 10/07/21: Farrukh Rojo is a 86 year old male who was recently dc home with po antibx for diverticulitis - it hasnt been working well and he comes in with n/v and abdo pain . he says he has been passing gas and had a BM here in the ER. He says that he had a colonoscopy recently at [facility] but not sure if gi doc could get all the way through because of scar tissue. CT scans 2 weeks ago and today show descending colon tics and twisting. todays scan now shows worsening obstruction now with small bowel dilatation. pt is on dialysis, has multiple complaints with arthritis. sadened as he feels body is failing him and not sure how far he wants to go. still agrees to dialysis tomorrow. This 86 year-old legally blind M with ESRD on HD MWF, anemia of CKD, HFpEF, GERD, AAA s/p EVAR 03/02/21, HTN, gout, prostate CA s/p radical prostatectomy, hx GI bleed, hx colonic polyp s/p polypectomy, and 2 recent admissions to [facility] [place] and [facility] [place] for sigmoid diverticulitis was re-admitted to surgical service for bowel obstruction and question of underlying sigmoid colonic malignancy causing recurrent diverticulitis. He was deemed to have extremely high operative risk. In discussion with the patient and his family, he elected to transition to hospice care and he declined further hemodialysis in light of comorobidities and operative risk. He was placed on CIVIL STRUCTURAL ENGINEER status with medications for management of symptoms, and peacefully at 16:26 on 10/09/21 with family at bedside. Additional Data Attending physician: Debra Simpson MD Was code activated?: No Autopsy requested?: No cloth examiner machine notified?: No Organ bank notified?: No Advance directives: No Hospice patient?: Yes
--- NOTE | 2021-10-09 16:42 | PM.EVENT ---
Event Note Date of Service: 10/09/21 Event Note: pt pronounced at 430 pm by Hospitalist family was in the room postmortem care ordered
== END 2021-10-09 17:01 | disposition expired | DRG 374 ==
LOC: HO.ED 17:39 → HO.EDOVER 18:32 → HO.S3 21:46
PROVIDERS: Physician Assistant; Admitting Provider Surgery; Emergency Provider Emergency Medicine Emergency Medical Services; PCP Physician Assistant; Visit Provider Family Medicine
DX: C18.7 Malignant neoplasm of sigmoid colon (principal); N18.6 End stage renal disease; K57.32 Diverticulitis of large intestine without perforation or abscess without bleeding; I13.2 Hypertensive heart and chronic kidney disease with heart failure and with stage 5 chronic kidney disease, or end stage renal disease; I50.32 Chronic diastolic (congestive) heart failure; K56.609 Unspecified intestinal obstruction, unspecified as to partial versus complete obstruction; H54.8 Legal blindness, as defined in USA; I71.4 Abdominal aortic aneurysm, without rupture; D63.1 Anemia in chronic kidney disease; I35.0 Nonrheumatic aortic (valve) stenosis; Z99.2 Dependence on renal dialysis; Z20.822 Contact with and (suspected) exposure to COVID-19; Z85.46 Personal history of malignant neoplasm of prostate; Z87.891 Personal history of nicotine dependence; Z88.5 Allergy status to narcotic agent; Z88.6 Allergy status to analgesic agent; Z79.899 Other long term (current) drug therapy; Z66 Do not resuscitate; Z51.5 Encounter for palliative care
CPT/HCPCS: 36415; 71045; 74177; 80048; 80076; 83605; 83690; 83735; 83880; 85025; 85027; 87040; 87635; 96365; 96375; 99284; 99291; J2270; J2405; J2543; J3010